=== PATIENT | female | born 1940 | race Caucasian/White ===

== ENCOUNTER → 2016-05-20 | Outpatient (CLI) | payer OTHER, BC ==
[~2016-05-20] MED LIST: CALCTAB5 PO; LVNIS100 SQ; MULTCAP33 PO; OMEGCAP2 PO; OXYC-57 PO; SPIR25TA PO
[2016-05-20 18:03] LABS: ALT/SGPT 20 U/L (12-78); BLOOD UREA NITROGEN 24 mg/dl (7-18); BUN/CREATININE RATIO 18.1 (10-20); CALCIUM 9.3 mg/dl (8.5-10.1); CARBON DIOXIDE 33 mmol/L (21-32); CHLORIDE 104 mmol/L (98-107); GLUCOSE 108 mg/dl (70-99); POTASSIUM 4.2 mmol/L (3.5-5.1); SODIUM 143 mmol/L (136-145)
[2016-05-20 18:06] LABS: ALKALINE PHOSPHATASE 88 U/L (45-117); AST/SGOT 11 U/L (15-37)
[2016-05-20 18:08] LABS: BASO % 0.3 %; BASO ABS # 0.02 K/uL (0-0.2); COMPLETE YES; EOS % 2.6 %; HEMATOCRIT 36.1 % (37-47); IG% 0.7 %; LYMPH ABS # 1.63 K/uL (1.2-3.4); MEAN CELL VOLUME 96.3 fL (80-100); MEAN CORPUSCULAR HEMOGLOBIN 30.7 pg (25-34); MEAN CORPUSCULAR HGB CONC 31.9 g/dl (32-36); MEAN PLATELET VOLUME 10.4 fL (7.4-10.4); MONO % 11.8 %; NEUT % 57.6 %; PLATELET COUNT 176 K/uL (130-400); RED BLOOD COUNT 3.75 M/uL (4.2-5.4); WHITE BLOOD COUNT 6.04 K/uL (4.8-10.8)
== END | disposition home or self-care (01) ==
LOC: C.LABMFLN 13:41
PROVIDERS: ATTEND Internal Medicine Hematology & Oncology
DX: C56.9 Malignant neoplasm of unspecified ovary (principal)

== ENCOUNTER → 2016-06-19 | Outpatient (CLI) | payer OTHER, BC | END | disposition home or self-care (01) | LOC: C.LABMFLN 10:42 | PROVIDERS: ATTEND Internal Medicine Hematology & Oncology | DX: C56.9 Malignant neoplasm of unspecified ovary (principal) ==

== ENCOUNTER → 2016-08-28 | Outpatient (CLI) | payer OTHER, BC ==
[~2016-08-28] MED LIST changes: +MULT-190 PO; +ONDA8TAB6 PO; +OPTIRAY 320 IV PRN
--- NOTE | 2016-08-28 09:04 | DIAGNOSTIC IMAGING REPORT ---
CHEST CT WITH CONTRAST CT DOSE: 1228.63 mGy.cm HISTORY: Ovarian cancer. TECHNIQUE: Multiaxial CT images of the chest were performed following the intravenous administration of contrast. COMPARISON: Chest CT 05/05/2016. 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 This remains unchanged. The heart remains mildly enlarged. Stable 5 mm right anterior diaphragmatic lymph node. Small hiatus hernia. The right breast appears surgically absent. There are 2 hypodense lesions within the liver which remain stable. These favor cysts. No mediastinal or hilar lymphadenopathy. The central pulmonary arteries are patent. Normal caliber thoracic aorta. No suspicious lytic or blastic osseous lesions. No pneumothorax. No suspicious pulmonary nodules. Lower lobe linear densities favor subsegmental atelectasis. IMPRESSION: No evidence for metastatic disease within the chest. No change from the prior study. Electronically signed by: Gibran Estrada M.D. 08/28/2016 9:02 AM Dictated Date/Time: 08/28/2016 8:57 AM
--- NOTE | 2016-08-28 09:16 | DIAGNOSTIC IMAGING REPORT ---
CT SCAN OF THE ABDOMEN AND PELVIS WITH IV CONTRAST CLINICAL HISTORY: Ovarian cancer. COMPARISON STUDY: Abdominal CT dated 05/05/2016. PET/CT dated 11/14/2015. TECHNIQUE: Following the IV administration of 92 cc of Optiray 320, CT scan of the abdomen and pelvis is performed from the lung bases to the proximal femora. Images are reviewed in the axial, sagittal, and coronal planes. IV contrast was administered without complication. Automated dose control exposure was utilized. FINDINGS: Lung bases: The heart is enlarged and there is a trace pericardial effusion. The lung bases are clear noting foci of linear atelectasis. A right breast prosthesis is noted. There is a small hiatal hernia. Liver: The contrast-enhanced liver is normal in size, contour, and attenuation. There is no intrahepatic biliary ductal dilatation. The hepatic veins and portal veins are patent. No new hepatic lesion is identified on today's examination. A 1.8 cm cyst in the left lobe is unchanged. A 1.1 cm cystic focus in the dome of the liver on image #28 likely represents a treated metastasis. This measures water density. Gallbladder: Unremarkable. Spleen: Normal in size and attenuation. Pancreas: Moderately atrophic. A coarse calcification is noted in the pancreatic head. A 1.3 cm ovoid cystic lesion the pancreatic body on image #99 is unchanged and typical appearance for a small sidebranch IPMN. Adrenal glands: Unremarkable. Kidneys: The contrast enhanced kidneys are atrophic and without hydronephrosis. The kidneys enhance symmetrically. Abdominal vasculature: The abdominal aorta is normal in course and caliber noting moderate to advanced atherosclerotic calcification. Bowel: The small bowel and colon are normal in course and caliber. There is advanced sigmoid diverticulosis without CT evidence of acute diverticulitis. The appendix is well-visualized and normal. Peritoneum: There is no intraperitoneal free air or abdominal ascites. A midline surgical scar is noted. There is increasingly confluent peritoneal nodularity identified in the left upper quadrant adjacent to the descending colon. A lesion seen on image #149 measures 2.3 x 1.2 cm. New peritoneal implants in the left upper quadrant are seen on images #121 and #138. There are new implants in the right upper quadrant seen on axial image #184, and in the right lower quadrant posterior to the cecum on images #257 and #273. Lymphadenopathy: None. Pelvic viscera: The bladder and uterus are normal as visualized. A solid and cystic cystic lesion related to left ovary is again identified. There is an enlarging solid and cystic mass lesion in the left adnexa, likely related to left ovary. The cystic component measures up to 8.0 x 8.1 cm (previously measured 5.4 x 2.3 cm). The solid nodular component is seen on the inferior margin on image #351 measures 3.1 x 3.7 cm (previous measured a maximum of 2.3 cm). No right adnexal lesion is seen. Skeletal structures: The skeletal structures are osteopenic. There is mild to moderate lumbosacral spondylosis. No lytic or blastic lesions are seen. There is a healed left pubic ring fracture. A large bone island is incidentally noted in the left ischium. IMPRESSION: 1. Overall progression of disease as compared to 05/05/2016. There has been enlargement of the solid and cystic lesion in the left adnexa as well as modest progression of peritoneal carcinomatosis. No abdominal ascites is seen. 2. Advanced sigmoid diverticulosis without CT evidence of acute diverticulitis. 3. 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 4. Additional findings as above. Electronically signed by: Diogenes Huitron M.D. 08/28/2016 9:14 AM Dictated Date/Time: 08/28/2016 9:03 AM
== END | disposition home or self-care (01) ==
LOC: C.CTS 07:14
PROVIDERS: ATTEND Internal Medicine Hematology & Oncology
DX: C56.9 Malignant neoplasm of unspecified ovary (principal); K57.30 Diverticulosis of large intestine without perforation or abscess without bleeding

== ENCOUNTER → 2016-09-24 | Outpatient (CLI) | payer OTHER, BC ==
[~2016-09-24] MED LIST changes: +FENTANYL CITRATE INJ 50 MCG/1 ML 2 ML VIAL ONE; -OPTIRAY 320 IV PRN
--- NOTE | 2016-09-24 13:25 | DIAGNOSTIC IMAGING REPORT ---
PET/CT CLINICAL HISTORY: Ovarian cancer. TECHNIQUE: A PET/CT was performed from the skull base through the upper thighs following intravenous injection of 15.18 mCi of F 18 FDG IV. The injection was performed at 7:13 AM on September 24, 2016 and imaging began at 9:20 AM on September 24, 2016. Unenhanced CT was performed for attenuation correction purposes and anatomic localization. COMPARISON STUDY: PET/CT November 14, [address] of the chest, abdomen and pelvis May 05, 2016 and August 28, 2016. FINDINGS: Head and neck: No suspicious FDG uptake is identified within the neck. There is no cervical lymphadenopathy. Chest: No suspicious FDG uptake is identified within the chest. There is no thoracic lymphadenopathy. The heart is moderately enlarged. There are no suspicious pulmonary nodules. Abdomen and Pelvis: Numerous FDG avid peritoneal nodules are noted. These are similar to CT of August 28, [address] of May 05, 2016. A 2.4 x 1.1 cm left upper quadrant peritoneal/omental nodule has an SUV max of 5.9. A mixed cystic and solid left pelvic mass, possibly ovarian in etiology, measures 8.3 x 7.8 cm. This is similar to prior CT but increased since CT of May 05, 2016. There is marked FDG uptake within the solid component located along the inferior aspect of this mass with an SUV max of 12.4. Numerous peritoneal nodules within the pelvis are noted. There is sigmoid diverticulosis without evidence for acute diverticulitis. Musculoskeletal: There is mild FDG uptake within the T8 vertebral body with an SUV max of 3.8. No corresponding lesion is shown on CT. This is indeterminate. IMPRESSION: 1. Multiple small FDG avid peritoneal nodules which are similar to CT of August 28, [address] of May 05, 2016 consistent with disease progression. 2. FDG avid solid and cystic left adnexal lesion suggestive of ovarian malignancy. This is similar to CT of August 28, 2016 but significantly increased since CT of May 05, 2016. 3. Mild FDG uptake within the posterior aspect of the T8 vertebral body without corresponding lesion by CT. While low suspicion, this is nonspecific and should be assessed on subsequent studies. Electronically signed by: John Parker M.D. 09/24/2016 1:24 PM Dictated Date/Time: 09/24/2016 11:39 AM
== END | disposition home or self-care (01) ==
LOC: C.PET 06:45
PROVIDERS: ATTEND Internal Medicine Hematology & Oncology
DX: C56.9 Malignant neoplasm of unspecified ovary (principal); R93.8 Abnormal findings on diagnostic imaging of other specified body structures

== ENCOUNTER 2016-10-06 06:21 | Day surgery (SDC) | payer OTHER, BC ==
[~2016-10-06] VITALS: Ht 162.6 cm; Wt 90.5 kg
[~2016-10-06 06:21] MED LIST changes: +CEFAZOLIN 1000MG/55 ML D5W IV SCH; +CEFAZOLIN 2000 MG/60 ML D5W IV SCH; -MULT-190 PO; -ONDA8TAB6 PO; -OXYC-57 PO; +SODIUM CHLORIDE 0.9% 1000ML 1,000 ML IV SCH
[2016-10-06 06:58] VITALS: BP 168/80; PULSE 72; TEMP 36.6; O2SAT 97; Ht 162.6 cm; Wt 90.5 kg
[2016-10-06] MEDS ORDERED: BUPIVACAINE/EPINEPHRINE 0.5% MPF 1:200,000 30 ML VIAL ONE (07:46)
[2016-10-06] MEDS ORDERED: LIDOCAINE HCL 1% 20 ML VIAL ONE (07:46)
[2016-10-06] MEDS ORDERED: MIDAZOLAM HCL 1 MG/ML 2ML VIAL ONE (07:46)
[2016-10-06] MEDS ORDERED: FENTANYL CITRATE INJ 50 MCG/1 ML 2 ML VIAL ONE ×2 (07:46→09:32)
[2016-10-06 07:56] VITALS: BP 168/80; PULSE 72; TEMP 36.6; O2SAT 97
--- NOTE | 2016-10-06 08:19 | History and Physical ---
History & Physical Date October 06, 2016. Chief Complaint Ovarian cancer History of Present Illness The patient is a 76 year old female who was diagnosed with ovarian cancer. She is in need of a port for chemotherapy. She is here for an insertion of an infusaport. Vitals Vital Signs Past 12 Hours Date Time Temp Pulse Resp B/P Pulse Ox O2 Delivery O2 Flow Rate FiO2 10/06/16 07:56 36.6 72 18 168/80 97 Room Air 10/06/16 06:58 36.6 72 18 168/80 97 Room Air Allergies Coded Allergies: Carboplatin (Verified Allergy, Intermediate, itchy palms, 10/06/16) Home Medications Scheduled Calcium (Caltrate), 600 MG PO DAILY Multiple Vitamins W/ Minerals (Preservision Areds), 1 CAP PO BID [place]-3 Fatty Acids (Fish Oil), 1 CAP PO DAILY Problem List Medical Problems: (1) Pleural effusion on right Surgical / Medical History Hx Cardiac Surgery: No Hx Abdominal Surgery: Yes (hysterectomy) Hx Cancer Surgery: Yes (right breast masectomy) Hx Thoracic Surgery: No Hx Orthopedic: No Hx Urinary Tract Surgery: No HX Other Surgery: No Past Medical/Surgical History: Cancer (ovarian, and breast) Social History Smoking Status: Never Smoker Hx Alcohol Use - Type & Amnt: No Hx Substance Use -Type & Amnt: No Review of Systems Constitutional: No chills, No diaphoresis, No fatigue, No fever, No malaise, No problem reported, No sweats, No weakness, No weight gain, No weight loss Respiratory: No LORA, No PND, No cough, No cyanosis, No dyspnea, No hemoptysis, No orthopnea, No problem reported, No short of breath, No sputum production, No stridor, No wheezing Cardiovascular: No chest pain, No chest pressure, No chest tightness, No cyanosis, No diaphoresis, No edema, No intermittent claudication, No lightheadedness, No mumur, No orthopnea, No palpitations, No paroxysmal nocturnal dyspnea, No problem reported, No syncope Gastrointestinal: No abdominal pain, No anorexia, No appetite changes, No belching, No constipation, No diarrhea, No dysphagia, No flatulence, No food intolerance, No heartburn, No hematemesis, No hematochezia, No hemorrhoids, No indigestion, No nausea, No problem reported, No rectal bleeding, No stool changes, No vomiting Genitourinary - Female: + problem reported (ovarian cancer) Musculoskeletal: No back pain, No gout, No joint pain, No joint swelling, No muscle pain, No muscle stiffness, No muscle weakness, No neck pain, No problem reported Neurologic: + 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) Psychiatric: No alcohol abuse, No anxiety, No auditory hallucinations, No depression, No drug abuse, No homicidal ideation, No mood changes, No problem reported, No suicidal ideation, No visual hallucinations Physical Exam Constitutional: General Apperance: heathly-appearing, well-nourished, well-developed Level of Distress: NAD Ambulation: ambulating normally Psychiatric: Mental Status: active & alert, normal mood, normal affect Orientation: oriented except where noted, to time, to place, to person Memory: recent memory normal, remote memory normal Head: normocephalic Neck: supple Lungs: Auscultation: breath sounds normal Cardiovascular: Heart Auscultation: RRR Peripheral Pulses: Radial Pulse: normal on the left, normal on the right Femoral Pulse: normal on the left, normal on the right Abdomen: Inspection & Palpation: soft Musculoskeletal: normal Extremities: Upper Right: no cyanosis, no edema, no varicosities, no palpable cord, no clubbing, no ulcers, no mottling Upper Left: no cyanosis, no edema, no varicosities, no palpable cord, no clubbing, no ulcers, no mottling Lower Right: no cyanosis, no edema, no varicosities, no palpable cord, no clubbing, no ulcers, no mottling Lower Left: no cyanosis, no edema, no varicosities, no palpable cord, no clubbing, no ulcers, no mottling Neurologic: Cranial Nerves: grossly intact Assessment and Plan Imp: Ovarian cancer Plan: Patient here for an insertion of an infusaport. I have discussed the risks options and benefits of the procedure with the patient. The patient understands the risks options and benefits and agrees to the procedure.
--- NOTE | 2016-10-06 08:19 | Procedure Note ---
Pre-Mod Sedation Assessment General Date of Moderate Sedation: October 06, 2016. Vital Signs: Vital Signs Past 12 Hours Date Time Temp Pulse Resp B/P Pulse Ox O2 Delivery O2 Flow Rate FiO2 10/06/16 07:56 36.6 72 18 168/80 97 Room Air 10/06/16 06:58 36.6 72 18 168/80 97 Room Air Pre-Sedation Airway Assessment Oral Cavity: WNL Short Thick Neck: No Hx of Sleep Apnea: Yes Smoking Status: Never Smoker Mallampati Classification: Class I ASA Classification: Class II Notes The planned sedation has been discussed with the patient and consent obtained. I have identified the patient, determined the appropriateness of sedation and have assessed the patient immediately prior to the procedure. All medicine(s) and interventions are by my order.
[2016-10-06] MEDS ORDERED: FENTANYL CITRATE INJ 50 MCG/1 ML 2 ML VIAL IV ONE (08:45)
[2016-10-06] MEDS ORDERED: MIDAZOLAM HCL 1 MG/ML 2ML VIAL IV ONE (08:45)
[2016-10-06] MEDS ORDERED: LIDOCAINE HCL 1% 20 ML VIAL IX ONE (08:47)
[2016-10-06] MEDS ORDERED: BUPIVACAINE/EPINEPHRINE 0.5% MPF 1:200,000 30 ML VIAL INFIL ONE (08:47)
--- NOTE | 2016-10-06 09:29 | Procedure Note ---
Post-Moderate Sedation Plan General Date of Moderate Sedation October 06, 2016. Vital Signs: Vital Signs Past 12 Hours Date Time Temp Pulse Resp B/P Pulse Ox O2 Delivery O2 Flow Rate FiO2 10/06/16 09:23 66 18 119/59 96 Nasal Cannula 4 10/06/16 07:56 36.6 72 18 168/80 97 Room Air 10/06/16 06:58 36.6 72 18 168/80 97 Room Air Review - Discharge Plan Post Moderate Sedation Plan: On clinical assessment, the patient appears to have tolerated the conscious sedation without complications. Patient is recovering as anticipated. Patient will continue to be monitored by nursing and may be discharged when conscious sedation discharge criteria are met.
--- NOTE | 2016-10-06 09:29 | [facility] Post Operative Brief Note ---
Immediate Operative Summary Operative Date October 06, 2016. Pre-Operative Diagnosis Ovarian cancer Post-Operative Diagnosis Same Procedure(s) Performed Insertion of Infusaport, Left subclavian Approach Fluoroscopy for Positioning Moderate Sedation ([id number]) Surgeon Juan Quail Farmer Surgeon(s) None Estimated Blood Loss 5 Findings tip in distal SVC Specimens None Anesthesia Local with moderate conscious sedation Complication(s) None Disposition
[2016-10-06 09:33] VITALS: BP 142/72; PULSE 61; TEMP 36.8; O2SAT 96
[2016-10-06] MEDS ORDERED: OXYC-57 PO (09:33)
--- NOTE | 2016-10-06 09:35 | Discharge Instructions ---
Discharge Instructions Date of Service October 06, 2016. Visit Reason for Visit: Ovarian Carcinoma Discharge Discharge Diagnosis / Problem: Ovarian cancer Discharge Goals Goal(s): Therapeutic intervention Activity Recommendations Activity Limitations: per Instructions/Follow-up section Anesthesia . Post Anesthesia Instructions: If you have had General Anesthesia or IV Sedation: * Do not drive today. * Resume driving when surgeon permits. * Do not make important decisions or sign legal documents today. * Call surgeon for: 1. Temperature elevations greater than 101 degrees F. 2. Uncontrollable pain. 3. Excessive bleeding. 4. Persistent nausea and vomiting. 5. Medication intolerance (nausea, vomiting or rash). * For nausea and vomiting use only clear liquids such as: tea, soda, bouillon until nausea subsides, then gradually increase diet as tolerated. * If you have any concerns or questions, call your surgeon's office. If physician is unavailable and it is an emergency, call 911 or go to the nearest emergency room. . Instructions / Follow-Up Instructions / Follow-Up Call [phone] to schedule a follow up appointment if one not already scheduled. ACTIVITY RECOMMENDATIONS: See Above SPECIAL CARE INSTRUCTIONS: Call your doctor if: * Temperature above 101 degrees * Pain not relieved by pain medicine ordered * There is increased drainage or redness from any incision * You have any unanswered questions or concerns. SPECIAL CARE INSTRUCTIONS: Medications: * Continue to take your medications as directed. If you have been given a prescription for Plavix, please fill it immediately and take as directed. Incision Care: * Your puncture site may have some bruising and minor swelling for about one week. * You will have a small dressing covering your puncture site. You may remove the dressing after 24 hours and shower. You may let the warm soapy water run over it, but be sure to dry the puncture site well and keep it dry. * DO NOT IMMERSE THE INCISION IN A TUB/POOL/etc. UNTIL HEALED. * Puncture sites should be kept covered with a band-aid until it begins to heal. Restrictions: * Depending on whether you leg or arm was punctured to access the arteries, you will be required to lay flat, hold your arm still, or both, for about 4 hours after the procedure to prevent bleeding. * Limit your activity for the first 48 hours. You may walk and go up and down steps. Avoid excessive bending or movement at the puncture site. Possible Complications: * Excessive Swelling - after blood flow is improved you may notice increased swelling in the lower legs. This is a normal response. This usually depends on the amount of blockages in the leg, how long they have been there prior to your procedure and how much blood flow was restored. Elevating your legs will help to improve this. Please notify our office ([phone] ) if the swelling does not go away after lying in bed overnight. * Infection/Drainage/Bleeding - Drainage or bleeding from the puncture site should be minimal. If you have excessive bleeding or drainage, call our office ([phone]) right away. * Pain - You may experience some mild pain or soreness at your puncture site. If your pain does not improve, please contact our office ([phone]). Call your doctor and seek emergent treatment if you develop: * Temperature above 101 degrees * Any fever or chills * Any redness or purulent drainage from the puncture site * Any new dusky/blue colored toes or feet with coolness or sharp or aching pain. SKIN IRRITATION: * You may experience some redness and/or swelling in the area where radiation was administered. If any skin irritation occurs, please contact your family physician. FOLLOW UP VISIT: Keep any scheduled doctor appointments. Diet Recommendations Recommended Home Diet: resume previous diet Procedures Procedures Performed: Insertion of Infusaport, Left subclavian Approach Fluoroscopy for Positioning Moderate Sedation ([id number]) Pending Studies Studies pending at discharge: no Medical Emergencies . Who to Call and When: Medical Emergencies: If at any time you feel your situation is an emergency, please call 911 immediately. . Non-Emergent Contact Non-Emergency issues call your: Surgeon . . "Provider Documentation" section prepared by Khang Martinez. .
[2016-10-06 10:05] VITALS: BP 136/69; PULSE 60; TEMP 36.8; O2SAT 97
--- NOTE | 2016-10-06 12:23 | DIAGNOSTIC IMAGING REPORT ---
DATE OF PROCEDURE: 10/06/2016 PREOPERATIVE DIAGNOSIS: Ovarian cancer. POSTOPERATIVE DIAGNOSIS: Same. PROCEDURES: 1. Insertion of left subclavian vein Infusaport. 2. Fluoroscopic imaging for positioning. 3. Conscious sedation 37 minutes. SURGEON: Dr. Martinez. ANESTHETIC: Local with conscious sedation. PROCEDURE INDICATIONS: The patient is a 76-year-old female with ovarian cancer in need of a port for chemotherapy. She understood the risks, options and benefits and agreed to have this procedure. We discussed to place it in the left side being that she had a right mastectomy in the past. DESCRIPTION OF PROCEDURE: The patient was taken to the angio suite and placed in supine position. After left side of neck and chest wall were prepped and draped in a sterile manner, the left internal jugular vein was imaged. It could not be found. It appeared to be occluded. We then localized the infraclavicular area and the area to form the pocket. A percutaneous puncture was then made in the left subclavian vein and a wire passed centrally. A transverse incision was made below this approximately 3 fingerbreadths and inferior pocket was formed. Bleeding was controlled using electrocautery. After that, the peel away sheath was inserted. Wire and dilator were removed. The catheter was passed through the subcutaneous tunnel from the pocket incision up to the puncture site. The puncture site was then opened slightly approximately 2 cm. The catheter was beveled and then passed into the peel-away sheath to a central position and the peel-away sheath removed. Once the tip was in the distal superior vena cava, the catheter was cut to appropriate length. The port was placed on the catheter and held in place with a clamp. The catheter was placed in the pocket and sewn to the anterior chest wall with 3-0 Prolene suture. Adequate hemostasis was seen in the wounds. Wounds were then closed with running 3-0 Vicryl subcutaneous layer and a running 4-0 subcuticular suture for the skin edges and Dermabond for a dressing. The port was then accessed. It aspirated and flushed easily. It was flushed with saline and then flushed with heparinized saline. Dermabond again was used for a dressing. The patient left the angio suite in good condition and tolerated the procedure well.
[2017-04-03] MEDS ORDERED: MULT-190 PO (07:29)
[2017-04-03] MEDS ORDERED: ONDA8TAB6 PO (07:30)
== END 2016-10-06 10:15 | disposition home or self-care (01) ==
LOC: C.ACU 06:21
PROVIDERS: ATTEND Surgery Vascular Surgery
DX: C56.9 Malignant neoplasm of unspecified ovary (principal); G47.30 Sleep apnea, unspecified; Z85.3 Personal history of malignant neoplasm of breast; Z90.11 Acquired absence of right breast and nipple; Z90.710 Acquired absence of both cervix and uterus

== ENCOUNTER → 2016-10-06 | Outpatient (CLI) | payer OTHER, BC ==
[~2016-10-06] MED LIST changes: -FENTANYL CITRATE INJ 50 MCG/1 ML 2 ML VIAL ONE
--- NOTE | 2016-10-06 13:20 | ECHOCARDIOGRAM REPORT ---
*NOTICE TO RECEIVING [employer] This information is strictly Confidential and protected under [place] law. [place] law prohibits you from making any further disclosure of this information unless further disclosure is expressly permitted by the written consent of the person to whom it pertains or is authorized by law. A general authorization for the release of medical or other information is not sufficient for this purpose. Hospital accepts no responsibility if the information is made available to any other person, INCLUDING THE PATIENT. Interpretation Summary * Name: ABDI ALANIZ Study Date: 10/06/2016 10:13 AM BP: 133/68 mmHg * Patient Location: [facility] HR: 61 * : 1940 (M/d/yyyy) Gender: Female Height: 64 in * Age: 76 yrs Ethnicity: CA Weight: 199 lb * Ordering Physician: Phill Barrios * Referring Physician: Phill Barrios D.O. * Performed By: Nicki Kirby RDCS * * Reason For Study: OVARIAN CA * BSA: 2.0 m2 * -- Conclusions -- * Left ventricular systolic function is normal. * Grade I diastolic dysfunction, (abnormal relaxation pattern). * There is mild mitral annular calcification. * Calcified plaque is demonstrated in the ascending aorta Procedure Details * A complete two-dimensional transthoracic echocardiogram was performed (2D, M-mode, Doppler and color flow Doppler). Left Ventricle * The left ventricle is normal in size. * There is normal left ventricular wall thickness. * Ejection Fraction = 55-60%. * Left ventricular systolic function is normal. * Grade I diastolic dysfunction, (abnormal relaxation pattern). * The left ventricular wall motion is normal. Right Ventricle * The right ventricle is normal in size and function. Atria * The left atrial size is normal. * Right atrial size is normal. Mitral Valve * The mitral valve is grossly normal. * There is mild mitral annular calcification. * Significant mitral regurgitation is absent. Tricuspid Valve * The tricuspid valve is not well visualized, but is grossly normal. Aortic Valve * Aortic valve sclerosis mild, without significant aortic valvular stenosis. * No hemodynamically significant valvular aortic stenosis. * There is no significant aortic regurgitation. Great Vessels * Calcified plaque is demonstrated in the ascending aorta Pericardium/Pleural * There is no pericardial effusion. Great Vessels * Normal inferior vena cava diameter and respiratory variation suggests normal central venous pressure. MMode 2D Measurements and Calculations IVSd 1.1 cm IVSs 1.7 cm LVIDd 4.8 cm LVIDs 3.5 cm LVPWd 0.95 cm LVPWs 1.7 cm IVS/LVPW 1.2 FS 28.2 % EDV(Teich) 109.4 ml ESV(Teich) 49.9 ml EF(Teich) 54.3 % EDV(cubed) 113.0 ml ESV(cubed) 41.9 ml EF(cubed) 62.9 % % IVS thick 54.3 % % LVPW thick 75.0 % LV mass(C)d 182.4 grams LV mass(C)dI 93.5 grams/m\S\2 LV mass(C)s 237.8 grams LV mass(C)sI 121.8 grams/m\S\2 SV(Teich) 59.4 ml SI(Teich) 30.4 ml/m\S\2 SV(cubed) 71.1 ml SI(cubed) 36.4 ml/m\S\2 Ao root diam 2.9 cm Ao root area 6.8 cm\S\2 LA dimension 3.6 cm LA/Ao 1.2 LVAd ap4 25.6 cm\S\2 LVLd ap4 7.7 cm EDV(MOD-sp4) 74.9 ml EDV(sp4-el) 72.1 ml LVAs ap4 14.7 cm\S\2 LVLs ap4 5.9 cm ESV(MOD-sp4) 34.0 ml ESV(sp4-el) 30.9 ml EF(MOD-sp4) 54.7 % EF(sp4-el) 57.1 % LVAd ap2 25.2 cm\S\2 LVLd ap2 7.6 cm EDV(MOD-sp2) 72.2 ml EDV(sp2-el) 71.0 ml LVAs ap2 14.4 cm\S\2 LVLs ap2 5.9 cm ESV(MOD-sp2) 31.7 ml ESV(sp2-el) 29.8 ml EF(MOD-sp2) 56.1 % EF(sp2-el) 58.0 % LVLd %diff -1.61 % EDV(MOD-bp) 74.1 ml LVLs %diff -1.18 % ESV(MOD-bp) 32.6 ml EF(MOD-bp) 56.0 % SV(MOD-sp4) 41.0 ml SI(MOD-sp4) 21.0 ml/m\S\2 SV(MOD-sp2) 40.5 ml SI(MOD-sp2) 20.7 ml/m\S\2 SV(MOD-bp) 41.5 ml SI(MOD-bp) 21.3 ml/m\S\2 SV(sp4-el) 41.2 ml SI(sp4-el) 21.1 ml/m\S\2 SV(sp2-el) 41.2 ml SI(sp2-el) 21.1 ml/m\S\2 Doppler Measurements and Calculations MV E max sanaz 50.0 cm/sec MV A max sanaz 74.2 cm/sec MV E/A 0.67 MV dec time 0.27 sec Ao V2 max 144.5 cm/sec Ao max PG 8.3 mmHg Ao max PG (full) 5.0 mmHg LV V1 max PG 3.4 mmHg LV V1 max 91.7 cm/sec
== END | disposition home or self-care (01) ==
LOC: C.CPL 06:24
PROVIDERS: ATTEND Internal Medicine Hematology & Oncology
DX: C56.9 Malignant neoplasm of unspecified ovary (principal)

== ENCOUNTER → 2016-11-12 | Outpatient (CLI) | payer OTHER, BC ==
[~2016-11-12] MED LIST changes: -CEFAZOLIN 1000MG/55 ML D5W IV SCH; -CEFAZOLIN 2000 MG/60 ML D5W IV SCH; -LVNIS100 SQ; +OXYC-57 PO; -SODIUM CHLORIDE 0.9% 1000ML 1,000 ML IV SCH; -SPIR25TA PO
[2016-11-12 13:21] LABS: BASO % 0.3 %; BASO ABS # 0.02 K/uL (0-0.2); COMPLETE YES; HEMATOCRIT 38.4 % (37-47); IG% 0.6 %; LYMPH % 16.9 %; LYMPH ABS # 1.06 K/uL (1.2-3.4); MEAN CELL VOLUME 93.4 fL (80-100); MEAN CORPUSCULAR HGB CONC 29.9 g/dl (32-36); MEAN PLATELET VOLUME 9.6 fL (7.4-10.4); MONO % 14.1 %; NEUT % 67.1 %; PLATELET COUNT 209 K/uL (130-400); RED BLOOD COUNT 4.11 M/uL (4.2-5.4); WHITE BLOOD COUNT 6.29 K/uL (4.8-10.8)
[2016-11-12 13:45] LABS: CALCIUM 8.9 mg/dl (8.5-10.1)
[2016-11-12 13:53] LABS: ALT/SGPT 20 U/L (12-78); BLOOD UREA NITROGEN 27 mg/dl (7-18); BUN/CREATININE RATIO 17.8 (10-20); CARBON DIOXIDE 28 mmol/L (21-32); CHLORIDE 104 mmol/L (98-107); GLUCOSE 123 mg/dl (70-99); POTASSIUM 3.7 mmol/L (3.5-5.1); SODIUM 139 mmol/L (136-145)
[2016-11-12 13:56] LABS: ALB/GLOB RATIO 0.9 (0.9-2); ALKALINE PHOSPHATASE 109 U/L (45-117); AST/SGOT 16 U/L (15-37)
[2016-11-12 15:10] LABS: MAGNESIUM 1.2 mg/dl (1.8-2.4)
== END | disposition home or self-care (01) ==
LOC: C.LABMFLN 10:03
PROVIDERS: ATTEND Internal Medicine Hematology & Oncology
DX: C56.9 Malignant neoplasm of unspecified ovary (principal)

== ENCOUNTER → 2016-11-20 | Outpatient (CLI) | payer OTHER, BC ==
[2016-11-20 14:20] LABS: ALB/GLOB RATIO 0.9 (0.9-2); ALT/SGPT 17 U/L (12-78); AST/SGOT 14 U/L (15-37); BLOOD UREA NITROGEN 24 mg/dl (7-18); BUN/CREATININE RATIO 17.1 (10-20); CALCIUM 8.9 mg/dl (8.5-10.1); CARBON DIOXIDE 25 mmol/L (21-32); CHLORIDE 104 mmol/L (98-107); GLUCOSE 122 mg/dl (70-99); SODIUM 138 mmol/L (136-145)
[2016-11-20 14:21] LABS: ALKALINE PHOSPHATASE 167 U/L (45-117)
== END | disposition home or self-care (01) ==
LOC: C.LABMFLN 10:51
PROVIDERS: ATTEND Internal Medicine Hematology & Oncology
DX: C56.9 Malignant neoplasm of unspecified ovary (principal)

== ENCOUNTER → 2017-01-07 | Outpatient (CLI) | payer OTHER, BC ==
[2017-01-07 13:23] LABS: BASO % 0.2 %; BASO ABS # 0.01 K/uL (0-0.2); COMPLETE YES; EOS % 1.2 %; IG% 0.2 %; LYMPH % 20.4 %; LYMPH ABS # 1.02 K/uL (1.2-3.4); MEAN CORPUSCULAR HEMOGLOBIN 31.3 pg (25-34); MEAN CORPUSCULAR HGB CONC 31.3 g/dl (32-36); MEAN PLATELET VOLUME 9.4 fL (7.4-10.4); MONO % 18.2 %; NEUT % 59.8 %; PLATELET COUNT 207 K/uL (130-400); WHITE BLOOD COUNT 5.01 K/uL (4.8-10.8)
[2017-01-07 13:40] LABS: ALT/SGPT 17 U/L (12-78); AST/SGOT 12 U/L (15-37); BLOOD UREA NITROGEN 25 mg/dl (7-18); BUN/CREATININE RATIO 19.3 (10-20); CALCIUM 8.7 mg/dl (8.5-10.1); CARBON DIOXIDE 26 mmol/L (21-32); CHLORIDE 107 mmol/L (98-107); GLUCOSE 104 mg/dl (70-99); MAGNESIUM 1.3 mg/dl (1.8-2.4); POTASSIUM 3.7 mmol/L (3.5-5.1); SODIUM 141 mmol/L (136-145)
[2017-01-07 13:42] LABS: ALKALINE PHOSPHATASE 99 U/L (45-117)
== END | disposition home or self-care (01) ==
LOC: C.LABMFLN 11:03
PROVIDERS: ATTEND Nurse Practitioner Family
DX: C56.9 Malignant neoplasm of unspecified ovary (principal)

== ENCOUNTER → 2017-02-03 | Outpatient (CLI) | payer OTHER, BC ==
[~2017-02-03] MED LIST changes: +OPTIRAY 320 IV PRN
--- NOTE | 2017-02-03 10:35 | DIAGNOSTIC IMAGING REPORT ---
CT OF THE CHEST WITH IV CONTRAST CLINICAL HISTORY: OVARIAN CA COMPARISON STUDY: 08/28/2016 TECHNIQUE: Following the IV administration of 118 mL of Optiray-320, CT of the thorax was performed from the thoracic inlet to the lung bases. Images are reviewed in the axial, sagittal, and coronal planes. IV contrast was administered without complication. A dose lowering technique was utilized adhering to the principles of ALARA. CT DOSE: 1280.08 mGy.cm FINDINGS: Thyroid: There is a 21 mm lower pole left lobe thyroid nodule. Thoracic aorta: The thoracic aorta is normal in course and caliber, noting standard 3-vessel arch anatomy. No aneurysm or dissection is seen. Pulmonary vasculature: The pulmonary trunk is normal in caliber. There are no central filling defects identified to suggest pulmonary embolus. Note that this examination was not protocoled for the evaluation of pulmonary emboli. HEART: There are coronary artery calcifications present. There is a left subclavian A-Port catheter present. The left internal jugular vein appears hypoplastic. Lungs and pleural spaces: No pleural effusions are visualized. There is no focal pulmonary consolidation. There is a linear by basilar atelectasis/scarring. There are no suspicious pulmonary masses. There is a stable 2 mm right lower lobe pulmonary nodule. Mediastinum: There is no mediastinal lymphadenopathy. Peggy: Clear. Axilla: Clear. Upper abdomen: There is stable 16 mm left lobe hepatic hypodensity likely representing a cyst Skeletal structures: A T6 vertebral body hemangiomas again evident. IMPRESSION: 1. No CT evidence of intrathoracic metastasis 2. Stable 2 cm lower pole left lobe thyroid nodule Electronically signed by: Tobi Bruno M.D. 02/03/2017 10:34 AM Dictated Date/Time: 02/03/2017 10:26 AM
--- NOTE | 2017-02-03 10:46 | DIAGNOSTIC IMAGING REPORT ---
ABD/PELVIS IV AND ORAL CONT CLINICAL HISTORY: 76 years-old Female presenting with OVARIAN CA. TECHNIQUE: Multidetector CT of the abdomen and pelvis was performed after the administration of intravenous contrast. IV contrast: 118 mL of Optiray 320. A dose lowering technique was used consistent with the principles of ALARA (as low as reasonably achievable). COMPARISON: 08/28/2016. CT DOSE (mGy.cm): The estimated cumulative dose is 1280.[address] chest. FINDINGS: Tool Builder topogram: Unremarkable. Lung bases: Minimal dependent changes likely atelectasis or scarring. Multichamber enlargement of the heart. Aortic valve calcification.. No pericardial or pleural effusion. Liver: Normal morphology. Well-defined hypoechoic density in the left hepatic lobe with additional smaller hypodensities elsewhere in the hepatic parenchyma, likely hepatic cysts or hamartomas. These are unchanged from prior. Suggestion of hepatic steatosis. Patent hepatic vasculature. Biliary: No intrahepatic or extrahepatic biliary ductal dilatation. Normal gallbladder. Pancreas: Moderate parenchymal atrophy. Cystic lesion along the dorsal aspect of the pancreatic tail measuring approximately 11 mm (series 7 image 113), stable from prior. Mild prominence of the pancreatic duct in the pancreatic head (series 7 image 140), new from prior. Few parenchymal calcifications in the pancreatic head and uncinate may be present. Spleen: Normal. Adrenal glands: Normal. Kidneys and ureters: Small hypodensity in the left kidney unchanged from prior. Focal cortical scarring suspected at the posterior left upper pole, more prominent on the current exam (series 7 image 143). No hydronephrosis. The left mid ureter is medialized secondary to mass effect from an enlarging left ovarian cystic mass. No dilatation of the proximal left ureter. Bladder: Incompletely evaluated secondary to underdistention. Pelvic organs: Interval enlargement of the bilobed, complex cystic and solid left ovarian lesion. A small lobular region anteriorly now measures 2.7 x 1.4 cm, previously 2.1 x 1.2 cm. The largest cystic component measures 10.9 x 10.2 cm in maximal axial dimensions, previously 8.1 x 3.0 cm. The more solid component inferiorly medially now measures 4.6 x 3.6 cm, previously 3.7 x 3.1 cm. Residual normal left ovarian parenchyma abutting the medial aspect of the complex cystic and solid mass. The uterus and right ovary are grossly normal in appearance. Bowel: Diverticulosis of the sigmoid colon, which is immediately abutted by the left adnexal mass. No bowel obstruction. Normal appendix. Small hiatal hernia. Peritoneal cavity: Redemonstration of metastatic peritoneal nodularity in the left upper quadrant, the largest nodule measuring 1.9 x 0.9 cm, previously 2.3 x 1.2 cm. Several additional sites of soft tissue nodularity again noted in the omentum of the left upper quadrant., Stable to slightly decreased in prominence from prior. Additional nodularity in the right abdomen is stable to slightly decreased in prominence. Several of these sites demonstrate suggestion of microcalcifications. No free fluid or gas. 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 Associated prominent mesenteric lymph nodes. This is similar appearance to prior exam. Vasculature: Atherosclerosis of the normal caliber abdominal aorta. IVC patent. Lymph nodes: Few prominent lymph nodes in the left external iliac region, which do not meet CT size criteria for pathologic enlargement. No enlarged lymph nodes in the abdomen or pelvis. Abdominal wall: Small fat-containing umbilical hernia. Possible metastatic nodularity within this as well (series 7 image 274), unchanged. Musculoskeletal: Degenerative changes of the spine. IMPRESSION: 1. Interval increase in size of the primary left adnexal malignancy. However, stable to slight interval decrease in prominence of multifocal peritoneal carcinomatosis. This suggests a mixed response. Microcalcifications suggested. No ascites or definite lymphadenopathy. 2. Stable appearance of the cystic lesion in the tail of the pancreas, which could represent a side branch intraductal papillary mucinous neoplasm or mucinous cyst. Apparent interval development of pancreatic ductal dilatation in the head of the pancreas. Parenchymal atrophy and scattered calcifications could suggest chronic pancreatitis. In this setting, a benign stricture may cause pancreatic ductal dilatation. Although given the presence of the presumed side branch IPMN, attention on follow-up. Electronically signed by: Jaya Holman M.D. 02/03/2017 10:45 AM Dictated Date/Time: 02/03/2017 10:26 AM
== END | disposition home or self-care (01) ==
LOC: C.CTS 09:11
PROVIDERS: ATTEND Internal Medicine Hematology & Oncology
DX: C56.9 Malignant neoplasm of unspecified ovary (principal)

== ENCOUNTER → 2017-02-04 | Outpatient (CLI) | payer OTHER, BC ==
[~2017-02-04] MED LIST changes: -OPTIRAY 320 IV PRN
[2017-02-04 13:13] LABS: BASO % 0.2 %; BASO ABS # 0.01 K/uL (0-0.2); COMPLETE YES; EOS % 0.9 %; HEMATOCRIT 31.3 % (37-47); IG% 0.2 %; LYMPH % 22.7 %; LYMPH ABS # 1.03 K/uL (1.2-3.4); MEAN CELL VOLUME 102.6 fL (80-100); MEAN CORPUSCULAR HEMOGLOBIN 32.8 pg (25-34); MEAN CORPUSCULAR HGB CONC 31.9 g/dl (32-36); MEAN PLATELET VOLUME 9.8 fL (7.4-10.4); MONO % 17.2 %; NEUT % 58.8 %; PLATELET COUNT 170 K/uL (130-400); RED BLOOD COUNT 3.05 M/uL (4.2-5.4); WHITE BLOOD COUNT 4.54 K/uL (4.8-10.8)
[2017-02-04 13:40] LABS: ALT/SGPT 17 U/L (12-78); BLOOD UREA NITROGEN 21 mg/dl (7-18); BUN/CREATININE RATIO 14.9 (10-20); CALCIUM 9.1 mg/dl (8.5-10.1); CARBON DIOXIDE 28 mmol/L (21-32); CHLORIDE 104 mmol/L (98-107); GLUCOSE 137 mg/dl (70-99); MAGNESIUM 1.3 mg/dl (1.8-2.4); POTASSIUM 3.5 mmol/L (3.5-5.1); SODIUM 139 mmol/L (136-145)
[2017-02-04 13:43] LABS: ALKALINE PHOSPHATASE 107 U/L (45-117); AST/SGOT 19 U/L (15-37)
== END | disposition home or self-care (01) ==
LOC: C.LABMFLN 10:09
PROVIDERS: ATTEND Nurse Practitioner Family
DX: C56.9 Malignant neoplasm of unspecified ovary (principal)

== ENCOUNTER → 2017-02-16 | Outpatient (CLI) | payer OTHER, BC ==
[2017-02-16 13:20] LABS: HEMATOCRIT 27.6 % (37-47); MEAN CELL VOLUME 102.6 fL (80-100); MEAN CORPUSCULAR HEMOGLOBIN 33.5 pg (25-34); MEAN CORPUSCULAR HGB CONC 32.6 g/dl (32-36); RED BLOOD COUNT 2.69 M/uL (4.2-5.4); WHITE BLOOD COUNT 3.02 K/uL (4.8-10.8)
[2017-02-16 13:49] LABS: ALT/SGPT 16 U/L (12-78); AST/SGOT 15 U/L (15-37); BLOOD UREA NITROGEN 20 mg/dl (7-18); BUN/CREATININE RATIO 16.9 (10-20); CALCIUM 8.9 mg/dl (8.5-10.1); CARBON DIOXIDE 27 mmol/L (21-32); CHLORIDE 107 mmol/L (98-107); GLUCOSE 114 mg/dl (70-99); POTASSIUM 3.6 mmol/L (3.5-5.1); SODIUM 143 mmol/L (136-145)
[2017-02-16 13:53] LABS: BASO % 0.3 %; BASO ABS # 0.01 K/uL (0-0.2); COMPLETE YES; EOS % 1.7 %; IG% 1.3 %; LYMPH % 26.2 %; LYMPH ABS # 0.79 K/uL (1.2-3.4); MEAN PLATELET VOLUME 10.3 fL (7.4-10.4); MONO % 6.3 %; NEUT % 64.2 %; PLATELET COUNT 93 K/uL (130-400); PLT ESTIMATE DECREASED; TOXIC GRANULATION OCCASIONAL
[2017-02-16 13:55] LABS: ALKALINE PHOSPHATASE 123 U/L (45-117)
== END | disposition home or self-care (01) ==
LOC: C.LABMFLN 10:54
PROVIDERS: ATTEND Internal Medicine Hematology & Oncology
DX: C56.9 Malignant neoplasm of unspecified ovary (principal)

== ENCOUNTER → 2017-02-23 | Outpatient (CLI) | payer OTHER, BC ==
--- NOTE | 2017-02-23 13:31 | DIAGNOSTIC IMAGING REPORT ---
PET/CT SKULL-THIGH CLINICAL HISTORY: OVARIAN CANCER COMPARISON STUDY: PET/CT scan dated 09/24/2016, CT scan of the chest abdomen pelvis dated 02/03/2017 FINDINGS: The patient was injected with 10.6 mCi of F 18 labeled FDG. Following the standard induction phase, PET/CT scanning was performed from the skull base to the upper thigh region. Within the neck, there are no FDG avid lesions. Within the chest, there is no pathologic FDG avid axillary, mediastinal, or hilar adenopathy. There are no pleural effusions. There is bibasal atelectasis. There are no FDG avid pulmonary masses. Within the abdomen, there is a stable 18 mm left lobe hepatic cyst. There are no FDG avid adrenal lesions. There are no FDG avid splenic lesions. There are persistent FDG avid peritoneal nodules. There is a stable 19 mm FDG avid nodule adjacent to the descending colon with SUV maximum of 4.2. There is a stable cystic lesion at the junction of the body and tail the pancreas. This is not FDG avid. Within the pelvis, there is an enlarging partially solid and cystic left adnexal lesion measuring 10.7 cm in maximal diameter. The solid component is FDG avid with SUV maximum of 9.4. There is physiologic urinary tract and bowel activity. There are no FDG avid skeletal lesions. There are intraspinal FDG avid foci at the T12-L1, and L1-L2 levels. Intraspinal metastasis cannot be excluded. An MRI of the lumbar spine might be considered in follow-up. IMPRESSION: 1. Multiple FDG avid peritoneal nodules, similar to the preceding study. 2. Enlarging FDG avid partially solid and cystic left adnexal mass measuring 10.7 cm in maximal diameter 3. New intraspinal FDG avid foci at the T12-L1, and L1-L2 levels. There is no definitive CT correlate. Intraspinal metastasis cannot be excluded, and an MRI of the lumbar spine might be considered in follow-up Electronically signed by: Tobi Bruno M.D. 02/23/2017 1:29 PM Dictated Date/Time: 02/23/2017 1:14 PM
== END | disposition home or self-care (01) ==
LOC: C.PET 09:16
PROVIDERS: ATTEND Internal Medicine Hematology & Oncology
DX: C56.9 Malignant neoplasm of unspecified ovary (principal)

== ENCOUNTER → 2017-03-06 | Outpatient (CLI) | payer OTHER, BC ==
[~2017-03-06] MED LIST changes: +MULT-190 PO; +ONDA8TAB6 PO
== END | disposition home or self-care (01) ==
LOC: C.LABMFLN 11:52
PROVIDERS: ATTEND Family Medicine
DX: R35.0 Frequency of micturition (principal)

== ENCOUNTER → 2017-03-09 | Outpatient (CLI) | payer OTHER, BC ==
[~2017-03-09] MED LIST changes: +GADAVIST IV PRN; -MULT-190 PO; -ONDA8TAB6 PO
--- NOTE | 2017-03-09 14:25 | DIAGNOSTIC IMAGING REPORT ---
LUMBAR SPINE MRI WITH AND WITHOUT CONTRAST HISTORY: Abnormal PET/CT. OVARIAN cancer,CHANGES TO PET SCAN TECHNIQUE: Multiplanar multisequence MRI of the lumbar spine was performed both before and after the intravenous administration of contrast. COMPARISON: PET CT 02/23/2017. FINDINGS: For the purpose of the report the L5-S1 disc space will be located on axial image 24 of 26. There is a large septated cystic mass within the pelvis. This is only partially imaged on this study. Alignment of the lumbar spine is intact. No fractures identified. Normal marrow signal intensity seen throughout the visualized osseous structures. Mild disc space narrowing at L1-L2. Remaining disc spaces are preserved. The conus terminates at the L2 level. Small broad-based posterior disc bulges at L1-L2, L2-L3, and L3-L4 without significant central canal or neural foraminal narrowing. Mild to moderate facet osteoarthritis within the lumbar spine most pronounced at the L4-L5 and L5-S1 levels. T1 and T2 hyperintense lesion at T11 likely represents a hemangioma. This measures 11 mm. No suspicious osseous lesions identified. No abnormal enhancement to suggest metastatic disease within the lumbar spine. No epidural masses. IMPRESSION: No evidence for metastatic disease within the lumbar spine. Specifically, there is no abnormality at the T12-L1 and L1-L2 levels to correspond to the PET CT imaging. Electronically signed by: Gibran Estrada M.D. 03/09/2017 2:24 PM Dictated Date/Time: 03/09/2017 2:14 PM
== END | disposition home or self-care (01) ==
LOC: C.MRI 11:24
PROVIDERS: ATTEND Internal Medicine Hematology & Oncology
DX: C56.9 Malignant neoplasm of unspecified ovary (principal); R93.7 Abnormal findings on diagnostic imaging of other parts of musculoskeletal system

== ENCOUNTER → 2017-04-01 | Outpatient (CLI) | payer OTHER, BC ==
[~2017-04-01] MED LIST changes: -GADAVIST IV PRN; +MULT-190 PO; +ONDA8TAB6 PO
[2017-04-01 13:07] LABS: HEMATOCRIT 24.1 % (37-47); MEAN CELL VOLUME 100.8 fL (80-100); MEAN CORPUSCULAR HEMOGLOBIN 32.6 pg (25-34); MEAN CORPUSCULAR HGB CONC 32.4 g/dl (32-36); MEAN PLATELET VOLUME 11.1 fL (7.4-10.4); PLATELET COUNT 43 K/uL (130-400); RED BLOOD COUNT 2.39 M/uL (4.2-5.4); WHITE BLOOD COUNT 2.32 K/uL (4.8-10.8)
[2017-04-01 13:14] LABS: BASO % 0.4 %; BASO ABS # 0.01 K/uL (0-0.2); COMPLETE YES; EOS % 2.6 %; IG% 0.9 %; LYMPH % 49.1 %; LYMPH ABS # 1.14 K/uL (1.2-3.4); MONO % 6.5 %; NEUT % 40.5 %; PLT ESTIMATE DECREASED; VACUOLIZATION 1+
[2017-04-01 18:33] LABS: ALB/GLOB RATIO 0.9 (0.9-2); ALT/SGPT 16 U/L (12-78); AST/SGOT 13 U/L (15-37); BLOOD UREA NITROGEN 28 mg/dl (7-18); BUN/CREATININE RATIO 18.8 (10-20); CALCIUM 8.8 mg/dl (8.5-10.1); CARBON DIOXIDE 26 mmol/L (21-32); CHLORIDE 106 mmol/L (98-107); GLUCOSE 120 mg/dl (70-99); POTASSIUM 3.6 mmol/L (3.5-5.1); SODIUM 141 mmol/L (136-145)
[2017-04-01 18:34] LABS: ALKALINE PHOSPHATASE 104 U/L (45-117)
--- NOTE | 2017-04-06 11:18 | CODING QUERY NO DIAGNOSIS ---
:1940 TREATMENT RENDERED WITHOUT A DIAGNOSIS To promote full compliance with coding requirements relating to patient care, physician participation is requested in all cases of invoice checker uncertainty. Please assist us with providing a diagnosis/symptom for the test(s) below: A diagnosis/symptom was not documented on your Order. A valid diagnosis/symptom is required to bill all insurances. Please remember that we are unable to code a diagnosis of rule out, probable, possible, questionable, or suspected. Tests that require a diagnosis: DOS: 04/01/17 * CA 125 DIAGNOSIS: * CBC WITH AUTO DIFF DIAGNOSIS: * LDH DIAGNOSIS: * CMP(Septic Tank Setter insert test name) DIAGNOSIS: Provider Signature: Date: Thank you Areli [facility] Information Management Once completed, please kindly fax back to [phone] For questions please call [phone]
== END | disposition home or self-care (01) ==
LOC: C.LABMFLN 10:48
PROVIDERS: ATTEND Internal Medicine Hematology & Oncology
DX: C56.9 Malignant neoplasm of unspecified ovary (principal)

== ENCOUNTER → 2017-04-15 | Outpatient (CLI) | payer OTHER, BC ==
[~2017-04-15] MED LIST changes: -MULTCAP33 PO; -OXYC-57 PO
[2017-04-15 12:59] LABS: BASO % 0.3 %; BASO ABS # 0.02 K/uL (0-0.2); COMPLETE YES; EOS % 0.9 %; HEMATOCRIT 34.4 % (37-47); IG% 1.6 %; LYMPH % 21.6 %; LYMPH ABS # 1.47 K/uL (1.2-3.4); MEAN CELL VOLUME 102.7 fL (80-100); MEAN CORPUSCULAR HEMOGLOBIN 32.8 pg (25-34); MEAN PLATELET VOLUME 10.1 fL (7.4-10.4); MONO % 15.8 %; NEUT % 59.8 %; PLATELET COUNT 226 K/uL (130-400); RED BLOOD COUNT 3.35 M/uL (4.2-5.4); WHITE BLOOD COUNT 6.82 K/uL (4.8-10.8)
[2017-04-15 13:26] LABS: ALT/SGPT 18 U/L (12-78); AST/SGOT 15 U/L (15-37); BLOOD UREA NITROGEN 27 mg/dl (7-18); BUN/CREATININE RATIO 19.5 (10-20); CALCIUM 9.1 mg/dl (8.5-10.1); CARBON DIOXIDE 28 mmol/L (21-32); CHLORIDE 102 mmol/L (98-107); CREATININE 1.38 mg/dl (0.60-1.20); GLUCOSE 121 mg/dl (70-99); POTASSIUM 3.7 mmol/L (3.5-5.1); SODIUM 137 mmol/L (136-145)
[2017-04-15 13:29] LABS: ALB/GLOB RATIO 0.9 (0.9-2); ALKALINE PHOSPHATASE 115 U/L (45-117)
== END | disposition home or self-care (01) ==
LOC: C.LABMFLN 09:59
PROVIDERS: ATTEND Internal Medicine Hematology & Oncology
DX: C56.9 Malignant neoplasm of unspecified ovary (principal)

== ENCOUNTER → 2017-04-22 | Outpatient (CLI) | payer OTHER, BC ==
[2017-04-22 12:44] LABS: BASO % 0.7 %; BASO ABS # 0.03 K/uL (0-0.2); COMPLETE YES; EOS % 1.2 %; HEMATOCRIT 31.7 % (37-47); IG% 0.5 %; LYMPH % 23.6 %; LYMPH ABS # 0.96 K/uL (1.2-3.4); MEAN CELL VOLUME 99.7 fL (80-100); MEAN CORPUSCULAR HEMOGLOBIN 32.7 pg (25-34); MEAN CORPUSCULAR HGB CONC 32.8 g/dl (32-36); MEAN PLATELET VOLUME 9.9 fL (7.4-10.4); MONO % 8.9 %; NEUT % 65.1 %; PLATELET COUNT 124 K/uL (130-400); RED BLOOD COUNT 3.18 M/uL (4.2-5.4); WHITE BLOOD COUNT 4.06 K/uL (4.8-10.8)
[2017-04-22 13:38] LABS: ALB/GLOB RATIO 0.8 (0.9-2); ALT/SGPT 15 U/L (12-78); AST/SGOT 9 U/L (15-37); BLOOD UREA NITROGEN 29 mg/dl (7-18); BUN/CREATININE RATIO 21.6 (10-20); CALCIUM 8.9 mg/dl (8.5-10.1); CARBON DIOXIDE 27 mmol/L (21-32); CHLORIDE 103 mmol/L (98-107); CREATININE 1.32 mg/dl (0.60-1.20); GLUCOSE 123 mg/dl (70-99); POTASSIUM 3.5 mmol/L (3.5-5.1); SODIUM 138 mmol/L (136-145)
[2017-04-22 13:40] LABS: ALKALINE PHOSPHATASE 108 U/L (45-117)
== END | disposition home or self-care (01) ==
LOC: C.LABMFLN 10:28
PROVIDERS: ATTEND Internal Medicine Hematology & Oncology
DX: C56.9 Malignant neoplasm of unspecified ovary (principal)

== ENCOUNTER 2017-05-08 06:46 | Emergency (ER) | payer OTHER, BC ==
[~2017-05-08] VITALS: Ht 162.6 cm; Wt 91.8 kg
[2017-05-08 06:52] VITALS: TEMP 36.7; Ht 162.6 cm; Wt 91.8 kg
[2017-05-08] MEDS ORDERED: CALC600T PO (06:58)
[2017-05-08] MEDS ORDERED: SODIUM CHLORIDE 0.9% 1000ML 1,000 ML IV STA (07:14)
[2017-05-08] MEDS ORDERED: SODIUM CHLORIDE 0.9% 250ML 250 ML IV STA (07:14)
[2017-05-08 07:19] VITALS: O2SAT 92
--- NOTE | 2017-05-08 07:21 | EMERGENCY ROOM VISIT NOTE ---
History Report prepared by Micah: Henrietta Carpenter Under the Supervision of: Dr. Merari Joy M.D. First contact with patient: 06:58 Chief Complaint: NAUSEA Stated Complaint: NAUSEA/VOMITING Nursing Triage Summary: Pt arrives to ER via BLS with complaints of N/V since midnight. Pt has ovarian cancer and had recent chemotherapy treatment 2 weeks ago. Pt also had fall last week and hit head. History of Present Illness The patient is a 77 year old female who presents to the Emergency Room with complaints of constant nausea and vomiting beginning about seven hours ago. The patient notes that she lost her balance last week and fell and hit her head. She states she had a check up after her fall. She denies any diarrhea, blood in vomit, or headache. The patient has ovarian cancer and her last chemotherapy treatment was two weeks ago. The patient has been temporarily stopped on her chemotherapy treatments because her counts were low. The patient lives with her and states he is not sick. The patient has a history of blood clots but is not presently on blood thinners. Source of History: patient Onset: 7 hours ago Position: other (generalized) Quality: other (nausea and vomiting) Timing: constant Associated Symptoms: + nausea, + vomiting, No headache, No diarrhea Review of Systems See HPI for pertinent positives & negatives. A total of 10 systems reviewed and were otherwise negative. Past Medical & Surgical Medical Problems: (1) Ovarian cancer (2) Pleural effusion on right Family History Patient reports no known family medical history. Social History Smoking Status: Never Smoker Alcohol Use: none Drug Use: none Marital Status: Housing Status: lives with family Occupation Status: retired Current/Historical Medications Scheduled Calcium Carbonate (Calcium 600), 600 MG PO DAILY Ocuvite Preservision (Ocuvite Preservision), 1 TAB PO DAILY Allergies Coded Allergies: Carboplatin (Verified Allergy, Intermediate, itchy palms, 05/08/17) Physical Exam Vital Signs Date Time Temp Pulse Resp B/P (MAP) Pulse Ox O2 Delivery O2 Flow Rate FiO2 05/08/17 13:17 83 18 132/81 94 05/08/17 12:07 80 16 155/93 95 Room Air 05/08/17 11:36 79 18 148/76 95 Room Air 05/08/17 10:41 77 20 155/78 92 Room Air 05/08/17 10:18 77 05/08/17 09:13 73 18 177/80 92 Room Air 05/08/17 07:58 85 20 142/64 95 Room Air 05/08/17 07:19 92 Room Air 05/08/17 07:15 84 20 145/79 95 Room Air 05/08/17 06:52 36.7 88 18 151/96 95 Room Air 05/08/17 06:52 86 Physical Exam Vital signs reviewed. General: Chronically ill-appearing female, in no significant distress. HEENT: No scleral icterus, pale conjunctiva, PERRLA, neck supple. Atraumatic. Cardiovascular: Regular rate and rhythm, no extra sounds. Pulmonary: Clear to auscultation bilaterally, normal work of breathing. Abdomen: Soft, nontender, nondistended, positive bowel sounds. Musculoskeletal: Atraumatic, no peripheral edema. Neurologic: Patient awake alert and oriented x 3 Skin: Warm, dry, no rash Medical Decision & Procedures ER Provider Diagnostic Interpretation: Radiology results as stated below per my review and radiologist interpretation: CT OF THE HEAD WITHOUT CONTRAST FINDINGS: No acute intracranial hemorrhage, midline shift or mass effect is present. Ventricular system is normal for age. Basilar cisterns are patent. There are no extra-axial collections. White matter hypodensities likely reflect small vessel disease. There are no findings to suggest acute dural sinus thrombosis or acute territorial infarct. An 8 mm left parafalcine calcified abnormality along the posterior falx could reflect a small meningioma or ossification/calcification of the falx. There is a small right frontal scalp contusion with no calvarial fracture. A suspected mucous retention cyst within the right maxillary sinus is partially imaged. IMPRESSION: 1. No acute intracranial findings. 2. Small right frontal scalp contusion. No calvarial fracture. Electronically signed by: John Parker M.D. ABDOMEN 2VIEW W/PA CHEST RTN FINDINGS: Left subclavian Mediport terminates at the confluence of the brachiocephalic veins. Atherosclerosis of aortic arch. Cardiac silhouette mildly enlarged. Lungs and pleural spaces clear. Mild distention of a limited segment of small bowel in the left/central abdomen with an apparent diameter of nearly 4 cm, although this may be exaggerated due to magnification. No gross pneumoperitoneum. Allowing for bowel gas and stool, no calcifications to suggest nephrolithiasis. Multiple pelvic phleboliths noted. Complete effacement of the right acromiohumeral interval suggesting complete rotator cuff tear. Degenerative changes of the spine. IMPRESSION: 1. No acute cardiopulmonary disease. 2. Focally dilated small bowel in the left/central abdomen. Bowel obstruction is difficult to exclude. No gross pneumoperitoneum. 3. Apparent round density projecting over the right upper quadrant is of uncertain etiology and possibly artifactual. Electronically signed by: Jaya Holman M.D. CT OF THE ABDOMEN AND PELVIS WITHOUT CONTRAST FINDINGS: Visualized portions of lower chest demonstrate nonspecific infiltration of the subcutaneous tissues overlying the inferior sternum. The heart is moderately enlarged. There is a trace pericardial effusion. There is a trace right pleural effusion. Evaluation of the abdomen and pelvis is suboptimal on this unenhanced examination. A 1.9 cm lateral segment hepatic cyst is again noted. There is a small hiatal hernia. The stomach is fluid-filled and distended. Unenhanced images of the spleen, adrenal glands and kidneys are unremarkable. There is no hydronephrosis. A 1.5 cm cystic lesion within the pancreatic neck is unchanged from earlier exams. This is indeterminate but stable. Note is again made of multiple omental nodules which are similar to PET/CT of February 23, 2017. These measure up to 1.9 cm. A 12.2 x 10.6 cm hypodense left adnexal mass suggests a primary ovarian malignancy. This is similar to prior PET/CT. The near entirety of the small bowel is fluid-filled and dilated with transition point within the right lower quadrant shown on image 333 of 481. There is 8.9 x 6.9 cm fluid and gas containing right lower quadrant structures suggestive of an abscess with adjacent infiltration. There is extraluminal gas. This suggests a contained perforation. Calcifications within this collection could reflect appendicolith. A normal appendix is not definitively identified. Ruptured acute appendicitis with abscess formation is favored. Several ileocolic lymph nodes may be reactive. There are no suspicious osseous lesions. There is colonic diverticulosis without evidence for acute diverticulitis. IMPRESSION: 1. Findings consistent with a small bowel obstruction with transition point within the right lower quadrant, within the distal ileum. This obstruction is likely related to an inflammatory process within the right lower quadrant with large fluid and gas containing abscess which measures 8.9 x 6.9 cm. The findings favor ruptured acute appendicitis with periappendiceal abscess. Surgical consultation is recommended. Findings discussed with Dr. Benita time of dictation. 2. No significant change in the left adnexal mass which is consistent with the history of ovarian carcinoma. Stable omental nodules which suggest peritoneal spread of disease. Electronically signed by: John Parker M.D. Laboratory Results 05/08/17 07:23 Red Blood Count 2.46, Mean Corpuscular Volume 99.6, Mean Corpuscular Hemoglobin 31.7, Mean Corpuscular Hemoglobin Concent 31.8, Mean Platelet Volume 9.6, Neutrophils (%) (Auto) 80.9, Lymphocytes (%) (Auto) 6.6, Monocytes (%) (Auto) 10.5, Eosinophils (%) (Auto) 0.0, Basophils (%) (Auto) 0.1, Neutrophils # (Auto ) 11.42, Lymphocytes # (Auto) 0.93, Monocytes # (Auto) 1.49, Eosinophils # (Auto ) 0.00, Basophils # (Auto) 0.02 05/08/17 07:23 Test 05/08/17 06:55 05/08/17 07:23 05/08/17 07:44 05/08/17 11:36 Prothrombin Time 11.7 SECONDS (9.0-12.0) Prothromb Time International Ratio 1.1 (0.9-1.1) Activated Partial Thromboplast Time 29.1 SECONDS (21.0-31.0) Partial Thromboplastin Ratio 1.1 White Blood Count 14.13 K/uL (4.8-10.8) Red Blood Count 2.46 M/uL (4.2-5.4) Hemoglobin 7.8 g/dL (12.0-16.0) Hematocrit 24.5 % (37-47) Mean Corpuscular Volume 99.6 fL (80-100) Mean Corpuscular Hemoglobin 31.7 pg (25-34) Mean Corpuscular Hemoglobin Concent 31.8 g/dl (32-36) Platelet Count 201 K/uL (130-400) Mean Platelet Volume 9.6 fL (7.4-10.4) Neutrophils (%) (Auto) 80.9 % Lymphocytes (%) (Auto) 6.6 % Monocytes (%) (Auto) 10.5 % Eosinophils (%) (Auto) 0.0 % Basophils (%) (Auto) 0.1 % Neutrophils # (Auto) 11.42 K/uL (1.4-6.5) Lymphocytes # (Auto) 0.93 K/uL (1.2-3.4) Monocytes # (Auto) 1.49 K/uL (0.11-0.59) Eosinophils # (Auto) 0.00 K/uL (0-0.5) Basophils # (Auto) 0.02 K/uL (0-0.2) RDW Standard Deviation 62.4 fL (36.4-46.3) RDW Coefficient of Variation 17.2 % (11.5-14.5) Immature Granulocyte % (Auto) 1.9 % Immature Granulocyte # (Auto) 0.27 K/uL (0.00-0.02) Nucleated RBC Absolute Count (auto) 0.02 K/uL (0-0) Nucleated Red Blood Cells % 0.2 % Toxic Granulation 1+ Hypochromasia PRESENT Anion Gap 7.0 mmol/L (3-11) Est Creatinine Clear Calc Drug Dose 32.7 ml/min Estimated GFR () 36.2 Estimated GFR (Non- 31.2 BUN/Creatinine Ratio 12.8 (10-20) Calcium Level 9.0 mg/dl (8.5-10.1) Magnesium Level 1.5 mg/dl (1.8-2.4) Total Bilirubin 0.5 mg/dl (0.2-1) Direct Bilirubin 0.2 mg/dl (0-0.2) Aspartate Amino Transf (AST/SGOT) 24 U/L (15-37) Alanine Aminotransferase (ALT/SGPT) 36 U/L (12-78) Alkaline Phosphatase 90 U/L (45-117) Total Creatine Kinase 42 U/L (26-192) Total Protein 7.8 gm/dl (6.4-8.2) Albumin 2.7 gm/dl (3.4-5.0) Bedside Troponin I < 0.030 ng/ml (0-0.045) Urine Color YELLOW Urine Appearance CLOUDY (CLEAR) Urine pH 5.0 (4.5-7.5) Urine Specific [place] 1.021 (1.000-1.030) Urine Protein 1+ (NEG) Urine Glucose (UA) NEG (NEG) Urine Ketones NEG (NEG) Urine Occult Blood TRACE (NEG) Urine Nitrite NEG (NEG) Urine Bilirubin NEG (NEG) Urine Urobilinogen NEG (NEG) Urine Leukocyte Esterase NEG (NEG) Urine WBC (Auto) 1-5 /hpf (0-5) Urine RBC (Auto) 0-4 /hpf (0-4) Urine Hyaline Casts (Auto) 0 /lpf (0-5) Urine Epithelial Cells (Auto) >30 /lpf (0-5) Urine Bacteria (Auto) NEG (NEG) Urine Renal Epithelial Cells /lpf (0-5) Urine Crystals URIC ACID (NONE PRSENT) Urine Pathogenic Casts /lpf (0) Urine Yeast (Auto) (NONE PRSENT) Laboratory results per my review. Medications Administered Medications (Trade) Dose Ordered Sig/Lenore Route Start Time Stop Time Status Last Admin Dose Admin Sodium Chloride 250 ml @ 999 mls/hr Q16M STAT IV 05/08/17 07:14 05/08/17 07:29 DC 05/08/17 07:38 999 MLS/HR Sodium Chloride 1,000 ml @ 125 mls/hr Q8H STAT IV 05/08/17 07:14 05/08/17 13:33 DC 05/08/17 07:39 125 MLS/HR Ondansetron HCl (Zofran Inj) 4 mg NOW STAT IV 05/08/17 07:27 05/08/17 07:28 DC 05/08/17 07:38 4 MG Magnesium Sulfate (Magnesium Sulfate) 2 gm NOW STAT IV 05/08/17 08:21 05/08/17 08:22 DC 05/08/17 08:32 2 GM Ondansetron HCl (Zofran Inj) 4 mg NOW STAT IV 05/08/17 09:28 05/08/17 09:29 DC 05/08/17 09:53 4 MG Piperacillin Sod/ Tazobactam Sod (Zosyn Iv) 4.5 gm NOW STAT IV 05/08/17 11:53 05/08/17 11:54 DC 05/08/17 12:07 4.5 GM ECG Indication: nausea Rate (beats per minute): 83 Rhythm: normal sinus Findings: no acute ischemic change, no ectopy ED Course 0713: Past medical records reviewed. The patient was evaluated in room A2. A complete history and physical examination was performed. 0714: Ordered Sodium Chloride 1000 ml @ 125 mls/hr IV, Sodium Chloride 250 ml @ 999 mls/hr IV. 0727: Ordered Zofran Inj 4 mg IV. 0821: Ordered Magnesium Sulfate 2 gm IV. 0928: Ordered Zofran Inj 4 mg IV. 1125: I reviewed the patient's case with Dr. Deborah Marie. He will evaluate the patient for further management. 1148: Dr. Parker-Radiology updated on the patient's CT results. 1152: I updated the patient on her test results. 1153: Ordered Zosyn IV 4.5 gm IV. 1219: I reviewed the patient's case with Dr. FowlerLiliana. He accepted the patient for transfer to [facility] and will evaluate the patient for further management. 1324: The patient left for transfer. Medical Decision Differential diagnosis: Etiologies such as gastroenteritis, food borne illness, infections, appendicitis , diverticulitis, inflammatory bowel disease, obstruction, GI bleed, biliary pathology, as well as others were entertained. This patient was evaluated and appeared to be in no significant distress. IV access was obtained and laboratory work was drawn. Patient was placed on the project controller. She was hydrated with normal saline solution. She was given Zofran 4 mg IV 2. Patient was given magnesium 2 g IV. She does have a mild leukocytosis which was initially thought to be stress induced. She is noted to be anemic however this is an ongoing issue related to her chemotherapy. Abdominal x-ray series reveals a questionable SBO. He scan of the abdomen and pelvis was performed and is concerning for a perforated appendicitis with abscess. Patient was given Zosyn 4.5 g IV. She was discussed with Dr. Tee of general surgery. He has recommended evaluation a tertiary care facility for interventional radiology. The patient and were made aware of the plan and agree. [facility], Dr. Weldon, was contacted. He has agreed to accept the patient transfer. She was transferred by [facility] for further management. Medication Reconcilliation Current Medication List: was personally reviewed by me Blood Pressure Screening Patient's blood pressure: Elevated blood pressure Blood pressure disposition: Referred to PCP (will be evaluated further at s/p transfer) Consults Time Called: 1123 Consulting Physician: Dr. Deborah Marie Returned Call: 1125 I reviewed the patient's case with Dr. Deborah HargroveG. He will evaluate the patient for further management. Additional Consults: Time Called: 1215 Consulted Physician: Dr. Flores Returned Call: 1219 Additional Comments: I reviewed the patient's case with Dr. Flores. He accepted the patient for transfer to [facility] and will evaluate the patient for further management. Impression Primary Impression: Perforated appendix Additional Impression: Ovarian cancer Critical Care I have personally spent greater than 35 minutes of critical care time in the direct management of this patient. This includes bedside care, interpretation of diagnostic studies, and testing, discussion with consultants, patient, and family members, and other required patient management activities. This 35 minutes is in excess of all separately billable procedures. Scribe Attestation The scribe's documentation has been prepared under my direction and personally reviewed by me in its entirety. I confirm that the note above accurately reflects all work, treatment, procedures, and medical decision making performed by me. Departure Information Dispostion Being Evaluated By Hospitalist Referrals Diogenes Godwin M.D. (PCP) Patient Instructions [facility] Problem Qualifiers
[2017-05-08] MEDS ORDERED: ONDANSETRON INJ 2 MG/ML 2 ML VIAL IV STA ×2 (07:27→09:28)
[2017-05-08 07:42] LABS: INR 1.1 (0.9-1.1); PARTIAL THROMBOPLASTIN RATIO 1.1; PROTHROMBIN TIME (PATIENT) 11.7 SECONDS (9.0-12.0)
[2017-05-08 07:48] LABS: HEMATOCRIT 24.5 % (37-47); MEAN CELL VOLUME 99.6 fL (80-100); MEAN CORPUSCULAR HEMOGLOBIN 31.7 pg (25-34); MEAN CORPUSCULAR HGB CONC 31.8 g/dl (32-36); MEAN PLATELET VOLUME 9.6 fL (7.4-10.4); PLATELET COUNT 201 K/uL (130-400); RED BLOOD COUNT 2.46 M/uL (4.2-5.4); WHITE BLOOD COUNT 14.13 K/uL (4.8-10.8)
[2017-05-08 08:03] LABS: BUN/CREATININE RATIO 12.8 (10-20); CREATININE 1.58 mg/dl (0.60-1.20); MAGNESIUM 1.5 mg/dl (1.8-2.4); POTASSIUM 3.9 mmol/L (3.5-5.1)
--- NOTE | 2017-05-08 08:05 | DIAGNOSTIC IMAGING REPORT ---
CT OF THE HEAD WITHOUT CONTRAST CLINICAL HISTORY: Vomiting. Recent fall. COMPARISON STUDY: No previous studies for comparison. CT DOSE: 709.48 mGy.cm TECHNIQUE: Helical axial images of the head were obtained without IV contrast. Automated exposure control was utilized for the study. A dose lowering technique was utilized adhering to the principles of ALARA. FINDINGS: No acute intracranial hemorrhage, midline shift or mass effect is present. Ventricular system is normal for age. Basilar cisterns are patent. There are no extra-axial collections. White matter hypodensities likely reflect small vessel disease. There are no findings to suggest acute dural sinus thrombosis or acute territorial infarct. An 8 mm left parafalcine calcified abnormality along the posterior falx could reflect a small meningioma or ossification/calcification of the falx. There is a small right frontal scalp contusion with no calvarial fracture. A suspected mucous retention cyst within the right maxillary sinus is partially imaged. IMPRESSION: 1. No acute intracranial findings. 2. Small right frontal scalp contusion. No calvarial fracture. Electronically signed by: John Parker M.D. 05/08/2017 8:04 AM Dictated Date/Time: 05/08/2017 7:59 AM
[2017-05-08 08:20] LABS: BASO % 0.1 %; BASO ABS # 0.02 K/uL (0-0.2); COMPLETE YES; HYPOCHROMIA PRESENT; IG% 1.9 %; LYMPH % 6.6 %; LYMPH ABS # 0.93 K/uL (1.2-3.4); MONO % 10.5 %; NEUT % 80.9 %; TOXIC GRANULATION 1+
[2017-05-08] MEDS ORDERED: MAGNESIUM SULFATE 1GM / D5W 1 GM BAG IV STA (08:21)
--- NOTE | 2017-05-08 08:37 | DIAGNOSTIC IMAGING REPORT ---
ABDOMEN 2VIEW W/PA CHEST RTN CLINICAL HISTORY: 77 years-old Female presenting with vomiting, recent fall. TECHNIQUE: PA view of the chest and supine and upright views of the abdomen were obtained. COMPARISON: 08/23/2015. FINDINGS: Left subclavian Mediport terminates at the confluence of the brachiocephalic veins. Atherosclerosis of aortic arch. Cardiac silhouette mildly enlarged. Lungs and pleural spaces clear. Mild distention of a limited segment of small bowel in the left/central abdomen with an apparent diameter of nearly 4 cm, although this may be exaggerated due to magnification. No gross pneumoperitoneum. Allowing for bowel gas and stool, no calcifications to suggest nephrolithiasis. Multiple pelvic phleboliths noted. Complete effacement of the right acromiohumeral interval suggesting complete rotator cuff tear. Degenerative changes of the spine. IMPRESSION: 1. No acute cardiopulmonary disease. 2. Focally dilated small bowel in the left/central abdomen. Bowel obstruction is difficult to exclude. No gross pneumoperitoneum. 3. Apparent round density projecting over the right upper quadrant is of uncertain etiology and possibly artifactual. Electronically signed by: Jaya Holman M.D. 05/08/2017 8:36 AM Dictated Date/Time: 05/08/2017 8:30 AM
[2017-05-08] MEDS ORDERED: PIPERACILLIN/TAZOBACTAM 4.5 GM/100ML D5W IV STA (11:53)
--- NOTE | 2017-05-08 11:57 | DIAGNOSTIC IMAGING REPORT ---
CT OF THE ABDOMEN AND PELVIS WITHOUT CONTRAST CLINICAL HISTORY: Nausea and vomiting. Small bowel obstruction. Ovarian cancer. COMPARISON STUDY: CT of the abdomen and pelvis February 03, 2017 and abdominal series with chest x-ray performed earlier today and PET/CT February 23, 2017. TECHNIQUE: Axial images of the abdomen and pelvis were obtained without IV contrast. Images were reviewed in the axial, sagittal, and coronal planes. A dose lowering technique was utilized adhering to the principles of ALARA. FINDINGS: Visualized portions of lower chest demonstrate nonspecific infiltration of the subcutaneous tissues overlying the inferior sternum. The heart is moderately enlarged. There is a trace pericardial effusion. There is a trace right pleural effusion. Evaluation of the abdomen and pelvis is suboptimal on this unenhanced examination. A 1.9 cm lateral segment hepatic cyst is again noted. There is a small hiatal hernia. The stomach is fluid-filled and distended. Unenhanced images of the spleen, adrenal glands and kidneys are unremarkable. There is no hydronephrosis. A 1.5 cm cystic lesion within the pancreatic neck is unchanged from earlier exams. This is indeterminate but stable. Note is again made of multiple omental nodules which are similar to PET/CT of February 23, 2017. These measure up to 1.9 cm. A 12.2 x 10.6 cm hypodense left adnexal mass suggests a primary ovarian malignancy. This is similar to prior PET/CT. The near entirety of the small bowel is fluid-filled and dilated with transition point within the right lower quadrant shown on image 333 of 481. There is 8.9 x 6.9 cm fluid and gas containing right lower quadrant structures suggestive of an abscess with adjacent infiltration. There is extraluminal gas. This suggests a contained perforation. Calcifications within this collection could reflect appendicolith. A normal appendix is not definitively identified. Ruptured acute appendicitis with abscess formation is favored. Several ileocolic lymph nodes may be reactive. There are no suspicious osseous lesions. There is colonic diverticulosis without evidence for acute diverticulitis. IMPRESSION: 1. Findings consistent with a small bowel obstruction with transition point within the right lower quadrant, within the distal ileum. This obstruction is likely related to an inflammatory process within the right lower quadrant with large fluid and gas containing abscess which measures 8.9 x 6.9 cm. The findings favor ruptured acute appendicitis with periappendiceal abscess. Surgical consultation is recommended. Findings discussed with Dr. Joy time of dictation. 2. No significant change in the left adnexal mass which is consistent with the history of ovarian carcinoma. Stable omental nodules which suggest peritoneal spread of disease. Electronically signed by: John Parker M.D. 05/08/2017 11:56 AM Dictated Date/Time: 05/08/2017 11:32 AM
[2017-05-08 13:01] LABS: URINE APPEARANCE CLOUDY (CLEAR); URINE BILIRUBIN NEG (NEG); URINE COLOR YELLOW; URINE EPITHELIAL CELL AUTO >30 /lpf (0-5); URINE NITRITE NEG (NEG); URINE SPECIFIC GRAVITY 1.021 (1.000-1.030); UROBILINOGEN NEG (NEG); ZZUR CULT IF INDIC CLEAN CATCH YES
[2017-05-08 13:03] LABS: MANUAL MICROSCOPIC REQUIRED? NO; REVIEW REQ? YES
[2017-05-08 13:17] VITALS: BP 132/81; PULSE 83; O2SAT 94
== END 2017-05-08 13:18 | disposition short-term general hospital (02) ==
LOC: EDBD 06:46 → C.EDA 06:49
DX: K35.2 Acute appendicitis with generalized peritonitis (principal); R11.2 Nausea with vomiting, unspecified; C56.9 Malignant neoplasm of unspecified ovary; Z92.21 Personal history of antineoplastic chemotherapy; S00.03XA Contusion of scalp, initial encounter; W19.XXXA Unspecified fall, initial encounter

== ENCOUNTER → 2017-06-26 | Outpatient (CLI) | payer OTHER, BC ==
[~2017-06-26] MED LIST changes: +CALC600T PO; -CALCTAB5 PO; -OMEGCAP2 PO; -ONDA8TAB6 PO
--- NOTE | 2017-06-26 13:35 | DIAGNOSTIC IMAGING REPORT ---
ABD/PELVIS ORAL CONT ONLY CLINICAL HISTORY: 77 years-old Female presenting with NEOPLASM OF OVARY. TECHNIQUE: Multidetector CT of the abdomen and pelvis was performed after the administration of oral and intravenous contrast. IV contrast: None. A dose lowering technique was used consistent with the principles of ALARA (as low as reasonably achievable). COMPARISON: 05/08/2017. CT DOSE (mGy.cm): The estimated cumulative dose is 919.14 mGy.cm. FINDINGS: Icu Clerk topogram: Unremarkable. Lung bases: Minimal basilar opacities, likely atelectasis. Mild multichamber enlargement of the heart. Mild aortic valve and mitral annular calcification. No pericardial or pleural effusion. Partially visualized right breast prosthesis likely implying history of right mastectomy. Liver: Normal morphology. Well-defined hypodensity in the left hepatic lobe unchanged and likely hepatic cyst. Normal liver density. Biliary: No gross biliary ductal dilatation allowing for noncontrast technique. Normal gallbladder. Pancreas: Mild parenchymal atrophy. Spleen: Normal noncontrast appearance. Adrenal glands: Normal noncontrast appearance. Kidneys and ureters: Normal noncontrast appearance. No nephrolithiasis. No hydronephrosis. Normal ureters. Bladder: Normal. Pelvic organs: Uterus and right ovary normal. Enlarged complex appearance of the left ovary as on prior exam consistent with known neoplasm. This is not significantly changed in size since the prior exam. Bowel: Diverticulosis. Interval resolution of right lower quadrant gas and fluid containing abscess. Only minimal inflammatory changes evident at the appendiceal tip (series 3 image 272), which may represent postinflammatory/postinfectious changes rather than acute inflammation of the appendix. No bowel obstruction. Small hiatal hernia. Peritoneal cavity: Small gas and fluid containing umbilical hernia. The presence of gas in this collection is indeterminate in etiology. No thais free peritoneal gas elsewhere. Multiple soft tissue nodules in the omentum and mesentery have slightly increased in size (series 3 images 148, 153, 87, 235, 249, 200). For example, the mesenteric nodule in the right mid abdomen now measures 13 mm, previously 9 mm (series 3 image 200). Peritoneal and mesenteric nodularity is slightly hyperdense area in Lymph nodes: No enlarged lymph nodes in the abdomen or pelvis. Nonspecific subcentimeter pericardial lymph node. Vasculature: Atherosclerosis of the normal caliber abdominal aorta. IVC patent. Abdominal wall: Postsurgical changes of the infraumbilical midline ventral anterior abdominal wall. Umbilical hernia containing fat, fluid, and gas. Musculoskeletal: Degenerative changes of the spine. Sclerotic lesion in the left ischium is unchanged from prior, possibly bone island. IMPRESSION: 1. Slight interval increase in size of mesenteric and omental nodularity, which could suggest progression of disease. Hyperdensity of this nodularity could suggest underlying papillary serous ovarian histology. 2. Stable appearance of the complex enlarged left ovary consistent with known primary neoplasm. 3. Interval resolution of right lower quadrant abscess. Residual inflammatory change at the appendiceal tip may represent postinfectious/postinflammatory change rather than acute inflammation of the appendix. Clinical follow-up recommended. 4. Gas and fluid containing umbilical hernia, unchanged from prior. Etiology of this gas is unclear. Electronically signed by: Jaya Holman M.D. 06/26/2017 1:33 PM Dictated Date/Time: 06/26/2017 1:18 PM
== END | disposition home or self-care (01) ==
LOC: C.CTS 11:01
PROVIDERS: ATTEND Internal Medicine Hematology & Oncology
DX: C56.2 Malignant neoplasm of left ovary (principal)

== ENCOUNTER → 2017-06-29 | Outpatient (CLI) | payer OTHER, BC ==
[2017-06-29 12:18] LABS: BASO % 0.3 %; BASO ABS # 0.02 K/uL (0-0.2); EOS % 2.8 %; EOS ABS # 0.17 K/uL (0-0.5); HEMATOCRIT 31.3 % (37-47); HEMOGLOBIN 9.6 g/dL (12.0-16.0); IG# 0.06 K/uL (0.00-0.02); LYMPH % 26.4 %; LYMPH ABS # 1.61 K/uL (1.2-3.4); MEAN CORPUSCULAR HGB CONC 30.7 g/dl (32-36); MEAN PLATELET VOLUME 10.2 fL (7.4-10.4); MONO % 13.1 %; NEUT % 56.4 %; NEUT ABS # 3.45 K/uL (1.4-6.5); PLATELET COUNT 180 K/uL (130-400); RED CELL DISTRIBUTION WIDTH CV 16.6 % (11.5-14.5); WHITE BLOOD COUNT 6.11 K/uL (4.8-10.8)
[2017-06-29 13:26] LABS: ALBUMIN 3.5 gm/dl (3.4-5.0); ALT/SGPT 15 U/L (12-78); AST/SGOT 14 U/L (15-37); BLOOD UREA NITROGEN 24 mg/dl (7-18); CALCIUM 9.1 mg/dl (8.5-10.1); CARBON DIOXIDE 31 mmol/L (21-32); CREATININE 1.68 mg/dl (0.60-1.20); GLUCOSE 81 mg/dl (70-99); POTASSIUM 3.8 mmol/L (3.5-5.1); SODIUM 136 mmol/L (136-145)
[2017-06-29 13:35] LABS: ALKALINE PHOSPHATASE 102 U/L (45-117); TOTAL PROTEIN 8.1 gm/dl (6.4-8.2)
== END | disposition home or self-care (01) ==
LOC: C.LABMFLN 08:56
PROVIDERS: ATTEND Internal Medicine Hematology & Oncology
DX: C56.9 Malignant neoplasm of unspecified ovary (principal)

== ENCOUNTER → 2017-08-20 | Outpatient (CLI) | payer OTHER, BC ==
[~2017-08-20] MED LIST changes: +OPTIRAY 320 IV PRN
--- NOTE | 2017-08-20 09:00 | DIAGNOSTIC IMAGING REPORT ---
CT OF THE CHEST WITH IV CONTRAST CLINICAL HISTORY: Ovarian cancer. COMPARISON STUDY: Chest CT February 03, 2017 and PET/CT February 23, 2017. TECHNIQUE: Following IV administration of 80 mL of Optiray-320, helical axial images of the chest were obtained. Sagittal and coronal reconstructions were viewed as well as maximal intensity projections on an independent 3-D workstation. A dose lowering technique was utilized adhering to the principles of ALARA. CT DOSE: 1076.44 mGy.cm FINDINGS: No pathologically enlarged axillary, mediastinal or hilar lymph nodes are present. Moderate cardiomegaly is noted. There is moderate coronary artery calcification. A left subclavian [id number] is in place. There is a small hiatal hernia. No pneumothorax or pleural effusion is noted. Groundglass opacities favor atelectasis. A few tiny subpleural nodules are unchanged from earlier exams. These are benign given stability. No new pulmonary nodules. There are no suspicious osseous lesions. The abdomen and pelvis will be reported separately. A left hepatic lobe cyst is again noted. The patient is status post right mastectomy. IMPRESSION: No evidence of metastatic disease within the chest. Electronically signed by: John Parker M.D. 08/20/2017 8:58 AM Dictated Date/Time: 08/20/2017 8:47 AM
--- NOTE | 2017-08-20 09:04 | DIAGNOSTIC IMAGING REPORT ---
CT ABD/PELVIS IV AND ORAL CONT CLINICAL HISTORY: OVARIAN CA COMPARISON STUDY: 06/26/2017 TECHNIQUE: Following the IV administration of 80 mL of Optiray-320, CT scan of the abdomen and pelvis was performed from the lung bases to the proximal femurs. Images are reviewed in the axial, sagittal, and coronal planes. IV contrast was administered without complication. A dose lowering technique was utilized adhering to the principles of ALARA. CT DOSE: FINDINGS: Lower chest: There is a solid 3 mm right lower lobe pulmonary nodule as visualized in image #[id number]. Dependent groundglass opacities within the right lung base are likely atelectatic. There is small hiatal hernia Liver: There is stable 17 mm hypodensity within the left lobe of the liver, likely representing a cyst. Gallbladder: Unremarkable. Spleen: Normal in size and attenuation. Pancreas: There is a stable 15 mm hypodense lesion within the pancreatic body. There is no ductal dilatation. Adrenal glands: Unremarkable. Kidneys: There is symmetric renal cortical enhancement. The kidneys are normal in size without hydronephrosis. Bowel: There are no transition zones indicate bowel obstruction. There is colonic diverticulosis. There is sigmoid wall thickening, likely secondary to peridiverticular muscular hypertrophy. There are no acute peridiverticular inflammatory changes. There is mild appendiceal thickening, and there is mild infiltration the fat surrounding the appendiceal tip. The findings likely represent the sequela of a prior ruptured appendicitis as was described in April 2017. Peritoneum: There is no free air. There is no ascites. There is a fat-containing umbilical hernia. There are multiple scattered peritoneal nodules. These have increased in size when compared the preceding study. An index nodule within the right lower quadrant mesentery measures 16 mm. This measured 7 mm in January 2017. A peritoneal nodule at the level of the splenic flexure measures 21 mm. This previously measured 19 mm. There is an enlarging soft tissue nodule within the patient's umbilical hernia which currently measures 16 mm. Vasculature: The abdominal aorta is normal in course and caliber. Adenopathy: Pelvic sidewall lymph nodes are the upper limits of normal in diameter. Pelvic viscera: There is a bilobed cystic left-sided pelvic mass measuring 12.5 x 8.8 x 8.9 cm. The inferior portion of this mass is complex with septations and nodules. Skeletal structures: There is a stable 1 cm sclerotic lesion within the left ischio, possibly representing a bone island. No destructive lesions are visualized. IMPRESSION: 1. Enlarging mesenteric and omental nodules, consistent with progressive metastatic disease 2. Complex bilobed cystic left pelvic mass measuring 12.5 x 8.8 x 8.9 cm. This is consistent with the patient's known primary malignancy 3. Persistent inflammatory changes in the region of the appendix 4. 3 mm right lower lobe pulmonary nodule 5. Stable 15 mm hypodense lesion within the pancreas. Electronically signed by: Tobi Bruno M.D. 08/20/2017 9:03 AM Dictated Date/Time: 08/20/2017 8:46 AM
== END | disposition home or self-care (01) ==
LOC: C.CTS 08:23
PROVIDERS: ATTEND Internal Medicine Hematology & Oncology
DX: C56.9 Malignant neoplasm of unspecified ovary (principal)

== ENCOUNTER → 2017-09-15 | Outpatient (CLI) | payer OTHER, BC ==
[~2017-09-15] MED LIST changes: -OPTIRAY 320 IV PRN
--- NOTE | 2017-09-15 09:41 | DIAGNOSTIC IMAGING REPORT ---
A-PORT CHECK CLINICAL HISTORY: 77 years-old Female presenting with MALIGNANT NEOPLASM OF OVARY. TECHNIQUE: 15 fluoroscopic image(s) recorded as part of a fluoroscopic examination of an indwelling Mediport. COMPARISON: Chest CT from 08/20/2017. FINDINGS: Initial circuit walker spot image demonstrates a left subclavian Mediport, which has been accessed. The catheter is somewhat redundant in the proximal intravascular portion. The catheter terminates in the left brachiocephalic vein confluence with the superior vena cava. Upon injection of approximately 4 mL of Optiray 320, contrast opacifies the axis port and proximal catheter, however, extravasation is evident at the level of the distal clavicle. No opacification of the mid to distal portion of the catheter. No intravascular opacification. Please see surgical report for further details. Fluoroscopy dosage (mGy): Not available. Fluoroscopy time: 0.3 minutes. Number of fluoroscopic spot images: 15. IMPRESSION: Findings consistent with catheter breakage with thais extravasation of contrast at the level of the subclavicular/midportion of the catheter. Surgical consultation recommended. The report will be called/faxed according to standard departmental protocol. Electronically signed by: Jaya Holman M.D. 09/15/2017 9:39 AM Dictated Date/Time: 09/15/2017 9:36 AM
== END | disposition home or self-care (01) ==
LOC: C.RAD 07:58
PROVIDERS: ATTEND Internal Medicine Hematology & Oncology
DX: C56.9 Malignant neoplasm of unspecified ovary (principal)

== ENCOUNTER → 2017-09-24 | Day surgery (SDC) | payer OTHER, BC ==
[2017-09-21 08:37] VITALS: BMI 33.0
[~2017-09-24] VITALS: Ht 162.6 cm; Wt 88.2 kg
[~2017-09-24] MED LIST changes: +APIX1TAB PO; +ATROPINE SULFATE 0.1 MG/ML 5ML SYR IV PRN; +BUPIVACAINE 0.5 % 5 MG/1 ML MPF 30ML VIAL ONE; +CEFAZOLIN 2000MG IV PUSH 15 ML IV SCH; +EpHEDrine SULFATE INJ 50 MG/ML AMP IV PRN; +EpINEphrine INJ 1MG/ML AMP 1 MG/ML AMP ONE; +FAMO20TA11 PO; +FENTANYL CITRATE INJ 50 MCG/1 ML 2 ML VIAL IV PRN; +FENTANYL CITRATE INJ 50 MCG/1 ML 2 ML VIAL ONE; +KETAMINE HCL INJ 50 MG/ML 10 ML VIAL ONE; +LACTATED RINGER'S 1000ML 1,000 ML IV SCH; +LIDOCAINE HCL 2% 2 ML VIAL (20MG/ML) ONE; +MIDAZOLAM HCL 1 MG/ML 2ML VIAL ONE; +ONDA-170 PO; +ONDANSETRON INJ 2 MG/ML 2 ML VIAL IV PRN; +ONDANSETRON INJ 2 MG/ML 2 ML VIAL ONE; +PROPOFOL IV EMULSION 10 MG/ML 20 ML VIAL ONE; +SODIUM CHLORIDE 0.9% 1000ML 1,000 ML IV SCH
[2017-09-24 08:11] VITALS: BP 162/81; PULSE 76; TEMP 36.6; O2SAT 96; Ht 162.6 cm; Wt 88.2 kg
--- NOTE | 2017-09-24 08:44 | History & Physical Bridge Note ---
H&P Re-Evaluation Bridge Note: I have examined the patient, reviewed the History & Physical and in the interval since the performance of the History & Physical I have noted the following changes of clinical significance: No changes noted
--- NOTE | 2017-09-24 09:37 | [facility] Post Operative Brief Note ---
Immediate Operative Summary Operative Date September 24, 2017. Pre-Operative Diagnosis A port Post-Operative Diagnosis A port Procedure(s) Performed Removal of A port Surgeon Dr. Mathews Assorter Laundry Surgeon(s) none Estimated Blood Loss 5 cc Findings Consistent with Post-Op Diagnosis Specimens A: explanted A port Anesthesia Type MAC Complication(s) none
[2017-09-24 09:40] VITALS: BP 139/63; PULSE 63; TEMP 37; O2SAT 92
--- NOTE | 2017-09-24 10:05 | Discharge Instructions ---
Discharge Instructions Date of Service September 24, 2017. Admission Reason for Admission: Port Catheter In Place Discharge Discharge Diagnosis / Problem: desire for mediport removal Discharge Goals Goal(s): Therapeutic intervention Activity Recommendations Activity Limitations: resume your previous activity Shower/Bathe: tomorrow . Instructions / Follow-Up Instructions / Follow-Up call [phone] if any questions or problems Current Hospital Diet Patient's current hospital diet: Discharge Diet Recommended Diet: Regular Diet Procedures Procedures Performed: Removal of A port Pending Studies Studies pending at discharge: no Medical Emergencies . Who to Call and When: Medical Emergencies: If at any time you feel your situation is an emergency, please call 911 immediately. . Non-Emergent Contact Non-Emergency issues call your: Primary Care Provider, Surgeon Call Non-Emergent contact if: temperature is above 101 . "Provider Documentation" section prepared by Yohannes Mathews. .
[2017-09-24 10:20] VITALS: BP 145/67; PULSE 60; TEMP 37; O2SAT 94
--- NOTE | 2017-09-24 10:50 | Anesthesiology Progress Note ---
Anesthesia Post Op Note Date & Time September 24, 2017 at 10:50 Vital Signs Pain Intensity: 0 Vital Signs Past 12 Hours Date Time Temp Pulse Resp B/P (MAP) Pulse Ox O2 Delivery O2 Flow Rate FiO2 09/24/17 10:20 37 60 18 145/67 94 Room Air 09/24/17 09:40 37 63 18 139/63 92 Room Air 09/24/17 08:11 36.6 76 16 162/81 (108) 96 Room Air Notes Mental Status: alert / awake / arousable, participated in evaluation Pt Amnestic to Procedure: Yes Nausea / Vomiting: adequately controlled Pain: adequately controlled Airway Patency, RR, SpO2: stable & adequate BP & HR: stable & adequate Hydration State: stable & adequate Anesthetic Complications: no major complications apparent
--- NOTE | 2017-09-24 11:54 | [facility] Operative Report ---
Operative Report Operative Date September 24, 2017. Pre-Operative Diagnosis A port Post-Operative Diagnosis A port Procedure(s) Performed Removal of A port Surgeon Dr. Mathews Stylist Apprentice Surgeon(s) none Estimated Blood Loss 5 cc Specimens A: explanted A port Anesthesia Type MAC Complication(s) none Description of Procedure After informed consent was obtained the patient was taken to the operating room placed in supine position. IV sedation was administered by anesthesia and titrated to effect. The left upper chest wall was sterilely prepped and draped in usual fashion. I placed some Marcaine with epinephrine to create a skin wheal over top of the palpable port. Then I used a 15 blade scalpel to open her prior incision. Electrocautery was used to open up the subcutaneous tissue. The port itself was readily encountered. There was a capsule around it but it did not appear to be infected. I opened the capsule. There were several sutures holding it in place and I cut these using suture scissors. The port itself as well as catheter was easily removed with gentle traction. I held pressure for a couple minutes. I then thoroughly irrigated the wound. I used 3-0 Vicryl for deep layers and 4-0 Monocryl for the skin. Sterile dressing was applied. The patient was awaken and transferred to recovery in stable condition. I attest to the content of the Intraoperative Record and any orders documented therein. Any exceptions are noted below.
== END | disposition home or self-care (01) ==
LOC: C.ACU 07:30
PROVIDERS: ATTEND Surgery
DX: Z95.828 Presence of other vascular implants and grafts (principal); E78.5 Hyperlipidemia, unspecified; K21.9 Gastro-esophageal reflux disease without esophagitis; E78.00 Pure hypercholesterolemia, unspecified; G47.33 Obstructive sleep apnea (adult) (pediatric); M17.10 Unilateral primary osteoarthritis, unspecified knee; Z85.3 Personal history of malignant neoplasm of breast; Z90.10 Acquired absence of unspecified breast and nipple; Z86.711 Personal history of pulmonary embolism; Z86.718 Personal history of other venous thrombosis and embolism; Z83.3 Family history of diabetes mellitus